=== PATIENT | female | born 1950 | race Caucasian/White ===

== ENCOUNTER 2018-09-19 22:59 | Inpatient (IN) | payer MEDICARE ==
--- NOTE | 2018-09-20 00:03 | ED ---
Chest Pain HPI - General Chief Complaint: Chest Pain Stated Complaint: chest pain,SOB Time Seen by Provider: 09/19/18 23:03 Source: patient, EMS Mode of arrival: EMS Limitations: no limitations - History of Present Illness Initial Comments: is a 67-year-old female presenting for shortness of breath. She has a known history of COPD and heart failure. She states that for the last 2 days, she has been having shortness of breath and is worse with laying flat. She is also been coughing denies any fevers. She has been having intermittent chest pain as well as a physical pressure on top of her chest. She was seen at outside facility, [facility], where they evaluated her and sent her here for further evaluation. She states that she was given a breathing treatment and it was noted to improve. - Related Data Home Medications Medication Instructions Recorded Confirmed Albuterol Nebulized [Ventolin 2.5 mg INHALATION RT-BID 09/19/18 09/19/18 Nebulized] Allopurinol [Zyloprim] 200 mg PO DAILY 09/19/18 09/19/18 Clopidogrel Bisulfate [Plavix] 75 mg PO DAILY 09/19/18 09/19/18 Diltiazem Cd [Cardizem Cd] 180 mg PO DAILY 09/19/18 09/19/18 Ezetimibe [Zetia] 10 mg PO DAILY 09/19/18 09/19/18 Flecainide Acetate [Tambocor] 100 mg PO Q12H 09/19/18 09/19/18 Fluticasone Nasal [place] [Flonase 1 - 2 spray EA NOSTRIL BID PRN 09/19/18 Nasal [place]] Furosemide [Lasix] 20 mg PO DAILY 09/19/18 09/19/18 Loratadine [Claritin] 10 mg PO DAILY 09/19/18 09/19/18 Omeprazole [PriLOSEC] 20 mg PO AC-BRKFST 09/19/18 09/19/18 Rosuvastatin Calcium [Crestor] 40 mg PO HS 09/19/18 09/19/18 Allergies Allergy/AdvReac Type Severity Reaction Status Date / Time No Known Allergies Allergy Verified 09/19/18 23:34 Review of Systems ROS Statement: Those systems with pertinent positive or pertinent negative responses have been documented in the HPI. Constitutional: Negative for chills, fatigue and fever. HENT: Negative for congestion. Respiratory: Positive for chest tightness, shortness of breath and wheezing. Positive for cough Cardiovascular: Negative for chest pain and palpitations. Gastrointestinal: Negative for abdominal pain. Negative for abdominal distention , diarrhea, nausea and vomiting. Genitourinary: Negative for dysuria. Musculoskeletal: Negative for back pain, neck pain and neck stiffness. Skin: Negative for color change. Neurological: Negative for dizziness, speech difficulty, weakness and light- headedness. Psychiatric/Behavioral: Negative for agitation and confusion. Negative for anxiety ROS Other: All systems not noted in ROS Statement are negative. Past Medical History Past Medical History: Heart Failure, COPD Additional Past Medical History / Comment(s): breast ca History of Any Multi-Drug Resistant Organisms: None Reported Additional Past Surgical History / Comment(s): choley, c section, right mastectomy Past Psychological History: No Psychological Hx Reported Smoking Status: Current every day smoker Past Alcohol Use History: None Reported Past Drug Use History: None Reported General Exam - General Exam Comments Initial Comments: Constitutional: Pt appears well-developed and well-nourished. No distress. Head: Normocephalic and atraumatic. Eyes: EOM are normal. Neck: Normal range of motion. Neck supple. Cardiovascular: Bradycardia, irregular rhythm, S1 normal, S2 normal and normal heart sounds. Exam reveals no gallop and no friction rub. No murmur heard. Trace pitting edema of the lower extremities Pulmonary/Chest: Effort normal and breath sounds normal. No tachypnea and no bradypnea. No respiratory distress. Mild wheezing bilaterally of the lower lung bases. Abdominal: Soft. Bowel sounds are normal. Pt exhibits no shifting dullness, there is mild diffuse abdominal distention, no pulsatile liver, no fluid wave, no abdominal bruit and no ascites. There is no rigidity, no rebound, no guarding , no tenderness at McBurney's point and negative Echavarria's sign. There is no tenderness. Musculoskeletal: Normal range of motion. Neurological: Pt is alert and oriented to person, place, and time. No cranial nerve deficit. Skin: Skin is warm and dry. Eczema-type rash of the neck noted. Pt is not diaphoretic. No erythema. No pallor. Psychiatric: Pt has a normal mood and affect. Pt behavior is normal. Thought content normal. Limitations: no limitations Course Vital Signs 09/19/18 09/19/18 23:03 23:30 Temperature 97.9 F Pulse Rate 50 L 40 L Respiratory 15 15 Rate Blood Pressure 97/76 110/56 O2 Sat by Pulse 94 L 96 Oximetry Chest Pain MDM - MDM Laboratory studies at the outside facility showed that sodium was 146, potassium 4.7, chloride 107, bicarb 28, glucose 186, calcium 9.1, BUN 21, creatinine 1.6, AST 18, ALT 19, GFR 32. Troponin was also noted to be negative. Significant findings included a BNP elevated at 1926. WBC was measured at 10.7, RBC 3.83, hemoglobin 12.4, hematocrit 38.3, MCV 100, MCH 32.4 , platelets 269. Chest x-ray was performed at outside facility as well and showed mild central pulmonary vascular congestion without consolidation. On arrival to our facility, EKG was performed and showed bradycardia with some mild ST depressions in V2 V3. Patient was not heparinized initially as troponin was negative at outside facility and she was not having any active chest pain. Patient was also asymptomatic in terms of the bradycardia and heart rate would occasionally get into the low 50s and therefore emergent treatment was not pursued. Nonetheless, it is likely thought that the patient' s shortness of breath and dyspnea secondary to COPD and/or CHF. Patient was not given aspirin or Lasix here as she had already received that at the outside facility. Explained all labs and diagnostic test results and that we will admit patient to hospital. Pt is agreeable to plan and case will be discussed with [facility] hospitalist in the a.m. Disposition Clinical Impression: Elevated brain natriuretic peptide (BNP) level, Bradycardia, COPD exacerbation Disposition: ADMITTED IP TO THIS HOSP Condition: Good Referrals: Nonstaff,Physician [Primary Care Provider] - 1-2 days Decision to Admit Reason: Admit from EC Decision Time: 00:18
[2018-09-20] MEDS ORDERED: NITROGLYCERIN SL TABS 0.4 MG TAB SUBLINGUAL PRN (00:35)
[2018-09-20 06:31] LABS: Creatine Kinase 64 U/L (30-135)
[2018-09-20 06:44] LABS: Creatine Kinase MB <0.2 ng/mL (0.0-2.4); Troponin I <0.012 ng/mL (0.000-0.034)
--- NOTE | 2018-09-20 09:44 | P.HPIM ---
History of Present Illness This is a pleasant 67 years old female with past medical history of COPD, congestive heart failure, breast cancer. Patient presents because of dyspnea and cough. Patient says that she has symptoms of 2-3 days of worsening dyspnea with her chronic cough making little phlegm now. Patient also was complaining of from palpitation of 1-2 days, which make her more concerns and she decided to come to the emergency room. Patient she feels generally weak however today she feels a little better and she couldn't walk to the restroom twice with no difficulty. Patient is on home oxygen 2 L via nasal cannula. Patient states that her PCP had left some dusky and she doesn't have one now. She sees Dr. Rosado the manager financial systems EKG showing bradycardia at 42 with the rhythm showing atrial fibrillation. Records patient have bigeminy secondary to morbid stype 2 on EMS EKG. Chest x- ray showing mild pulmonary vascular congestion with no acute consolidation as per report of the radiologist. Labs reviewed showing creatinine 1.6. Liver enzymes elevated. Troponin is less than 0.017. WBC 10.7 K. Hemoglobin 12.4. Platelets 269. BNP 1926. Sodium 146. Potassium 4.7. Review of Systems CONSTITUTIONAL: No fever, no malaise, no fatigue. HEENT: No recent visual problems or hearing problems. Denied any sore throat. CARDIOVASCULAR: No orthopnea, PND, no palpitations, no syncope. PULMONARY: No shortness of breath, no cough, no hemoptysis. GASTROINTESTINAL: No diarrhea, no nausea, no vomiting, no abdominal pain. Normoactive bowel sounds. NEUROLOGICAL: No headaches, no weakness, no numbness. HEMATOLOGICAL: Denies any bleeding or petechiae. GENITOURINARY: Denies any burning micturition, frequency, or urgency. MUSCULOSKELETAL/RHEUMATOLOGICAL: Denies any joint pain, swelling, or any muscle pain. ENDOCRINE: Denies any polyuria or polydipsia. Past Medical History Past Medical History: Heart Failure, COPD Additional Past Medical History / Comment(s): breast ca History of Any Multi-Drug Resistant Organisms: None Reported Past Surgical History: Section, Cholecystectomy Additional Past Surgical History / Comment(s): choley, c section, right mastectomy Past Anesthesia/Blood Transfusion Reactions: No Reported Reaction Past Psychological History: No Psychological Hx Reported Smoking Status: Current every day smoker Past Alcohol Use History: None Reported Past Drug Use History: None Reported Medications and Allergies Home Medications Medication Instructions Recorded Confirmed Type Albuterol Nebulized [Ventolin 2.5 mg INHALATION RT-BID 09/19/18 09/19/18 History Nebulized] Allopurinol [Zyloprim] 200 mg PO DAILY 09/19/18 09/19/18 History Clopidogrel Bisulfate [Plavix] 75 mg PO DAILY 09/19/18 09/19/18 History Diltiazem Cd [Cardizem Cd] 180 mg PO DAILY 09/19/18 09/19/18 History Ezetimibe [Zetia] 10 mg PO DAILY 09/19/18 09/19/18 History Flecainide Acetate [Tambocor] 100 mg PO Q12H 09/19/18 09/19/18 History Fluticasone Nasal [place] [Flonase 1 - 2 spray EA NOSTRIL BID PRN 09/19/18 History Nasal [place]] Furosemide [Lasix] 20 mg PO DAILY 09/19/18 09/19/18 History Loratadine [Claritin] 10 mg PO DAILY 09/19/18 09/19/18 History Omeprazole [PriLOSEC] 20 mg PO AC-BRKFST 09/19/18 09/19/18 History Rosuvastatin Calcium [Crestor] 40 mg PO HS 09/19/18 09/19/18 History Allergies Allergy/AdvReac Type Severity Reaction Status Date / Time No Known Allergies Allergy Verified 09/19/18 23:34 Physical Exam Vitals: Vital Signs Temp Pulse Pulse Resp BP BP Pulse Ox 09/20/18 04:00 97.9 F 46 L 18 104/60 94 L 09/20/18 03:26 44 L 20 09/20/18 02:07 97.8 F 44 L 20 102/65 97 09/20/18 01:00 39 L 15 121/63 96 09/20/18 00:00 40 L 15 134/76 99 09/19/18 23:30 40 L 15 110/56 96 09/19/18 23:03 97.9 F 50 L 15 97/76 94 L Intake and Output 09/19/18 09/20/18 09/20/18 22:59 06:59 14:59 Intake Total 137 Balance 137 Intake: Oral 137 Other: Voiding Method Toilet # Voids 1 Weight 64 kg GENERAL: The patient is alert and oriented x3, not in any acute distress. Well developed, well nourished. HEENT: Pupils are round and equally reacting to light. EOMI. No scleral icterus. No conjunctival pallor. Normocephalic, atraumatic. No pharyngeal erythema. No thyromegaly. CARDIOVASCULAR: S1 and S2 present. No murmurs, rubs, or gallops. PULMONARY: Chest is clear to auscultation, no wheezing or crackles. ABDOMEN: Soft, nontender, nondistended, normoactive bowel sounds. No palpable organomegaly. MUSCULOSKELETAL: No joint swelling or deformity. EXTREMITIES: No cyanosis, clubbing, or pedal edema. NEUROLOGICAL: Gross neurological examination did not reveal any focal deficits. SKIN: No rashes. Thrombosis Risk Factor Assmnt - Choose All That Apply Any of the Below Risk Factors Present?: Yes Each Factor Represents 1 point: Abnormal pulmonary function (COPD), Obesity ( BMI >25) Other Risk Factors: Yes Each Risk Factor Represents 2 Points: Age 61-74 years Other congenital or acquired thrombophilia - If yes, enter type in comment: No Thrombosis Risk Factor Assessment Total Risk Factor Score: 4 Thrombosis Risk Factor Assessment Level: Moderate Risk Assessment and Plan Assessment: Atrial fibrillation with bradycardia Chest pain. Looks more pleuritic Acute COPD exacerbation History of congestive heart failure. History of breast cancer. Generalized weakness Plan: This is a pleasant 67 years old female who presents because of dyspnea and bradycardia with abnormal EKG. Will call cardiology and pulmonary consult. Continue with a breathing treatments and oxygen. Steroids. Continue with antibiotic. Labs and medication were reviewed.. Continue same treatment. Continue with symptomatic treatment. Resume home medication. Monitor lytes and vitals. DVT and GI prophylaxis. Further recommendations of the clinical course of the patient DVT prophylaxis: Subcutaneous heparin GI Prophylaxis: Pepcid PT/OT: Pending Prognosis is guarded
--- NOTE | 2018-09-20 10:47 | P.CRDCN ---
History of Present Illness Consult date: 09/20/18 Requesting physician: Zoraida Bloom Consult reason: chest pain, congestive heart failure Chief complaint: Chest discomfort and shortness of breath History of present illness: This is a 67-year-old female with history of hypertension, hyperlipidemia, nondiabetic, she states that she smokes 3 packs of cigarettes per day, history of COPD, family history of premature coronary artery disease in her brother who recently had a stent placed. Patient presented to [facility] with symptoms of chest pressure and heaviness, also patient has been experiencing shortness of breath more than her usual, over the past couple of weeks. She has been coughing a significant amount, nonproductive. Patient also states that she has been getting episodes where he feels like she is going to pass out but denies any syncopal episodes. Chest x- ray performed at [place] showed mild central pulmonary vascular congestion. No acute consolidation. EKG performed at [facility] shows atrial fibrillation with a slow ventricular response. White blood cell count 10.7, hemoglobin 12.4, platelet count 269. BNP 1926. Sodium 146, potassium 4.7, BUN 21 and creatinine 1.6. Troponin 0.017. Patient was transferred to [facility] for further care and treatment. Patient states that she follows with a clerical assistant named Dr. Gipson. I pressure on arrival here 97/70 with a heart rate in the 40s to 50s, 94% on room air. Blood pressure this morning 90/ 50 with a heart rate in the 50s, 95% on room air. Troponins 0.012, 0.012. Past Medical History Past Medical History: Heart Failure, COPD Additional Past Medical History / Comment(s): breast ca History of Any Multi-Drug Resistant Organisms: None Reported Past Surgical History: Section, Cholecystectomy Additional Past Surgical History / Comment(s): choley, c section, right mastectomy Past Anesthesia/Blood Transfusion Reactions: No Reported Reaction Past Psychological History: No Psychological Hx Reported Smoking Status: Current every day smoker Past Alcohol Use History: None Reported Past Drug Use History: None Reported Medications and Allergies Home Medications Medication Instructions Recorded Confirmed Type Albuterol Nebulized [Ventolin 2.5 mg INHALATION RT-BID 09/19/18 09/19/18 History Nebulized] Allopurinol [Zyloprim] 200 mg PO DAILY 09/19/18 09/19/18 History Clopidogrel Bisulfate [Plavix] 75 mg PO DAILY 09/19/18 09/19/18 History Diltiazem Cd [Cardizem Cd] 180 mg PO DAILY 09/19/18 09/19/18 History Ezetimibe [Zetia] 10 mg PO DAILY 09/19/18 09/19/18 History Flecainide Acetate [Tambocor] 100 mg PO Q12H 09/19/18 09/19/18 History Fluticasone Nasal [place] [Flonase 1 - 2 spray EA NOSTRIL BID PRN 09/19/18 History Nasal [place]] Furosemide [Lasix] 20 mg PO DAILY 09/19/18 09/19/18 History Loratadine [Claritin] 10 mg PO DAILY 09/19/18 09/19/18 History Omeprazole [PriLOSEC] 20 mg PO AC-BRKFST 09/19/18 09/19/18 History Rosuvastatin Calcium [Crestor] 40 mg PO HS 09/19/18 09/19/18 History Allergies Allergy/AdvReac Type Severity Reaction Status Date / Time No Known Allergies Allergy Verified 09/19/18 23:34 Physical Exam Vitals: Vital Signs Temp Pulse Pulse Resp BP BP Pulse Ox 09/20/18 08:00 97.3 F L 51 L 20 91/50 95 09/20/18 04:00 97.9 F 46 L 18 104/60 94 L 09/20/18 03:26 44 L 20 09/20/18 02:07 97.8 F 44 L 20 102/65 97 09/20/18 01:00 39 L 15 121/63 96 09/20/18 00:00 40 L 15 134/76 99 09/19/18 23:30 40 L 15 110/56 96 09/19/18 23:03 97.9 F 50 L 15 97/76 94 L Intake and Output 09/19/18 09/20/18 09/20/18 22:59 06:59 14:59 Intake Total 137 0 Balance 137 0 Intake: Oral 137 0 Other: Voiding Method Toilet # Voids 1 Weight 64 kg PHYSICAL EXAMINATION: GENERAL: 67-year-old female in no acute distress at the time of my examination HEENT: Head is atraumatic, normocephalic. Pupils equal, round. Sclera anicteric. Conjunctiva are clear. Mucous membranes of the mouth are moist. Neck is supple. There is no elevated jugular venous pressure. No carotid bruit is heard. HEART EXAMINATION: Heart S1 and S2 irregularly irregular systolic murmur is heard. CHEST EXAMINATION: lungs reveal scattered wheezing throughout with diminished air entry to the bases. ABDOMEN: Soft, nontender. Bowel sounds are heard. No organomegaly noted. EXTREMITIES: 1+ peripheral pulses with evidence of peripheral edema and no calf tenderness noted. NEUROLOGIC patient is awake, alert and oriented 3 . . Results Cardiac Enzymes 09/19/18 09/20/18 Range/Units 23:30 05:32 CK-MB (CK-2) <0.2 (0.0-2.4) ng/mL Troponin I <0.012 <0.012 (0.000-0.034) ng/mL Current Medications Generic Name Dose Route Start Last Admin Trade Name Freq PRN Reason Stop Dose Admin Aspirin 325 mg 09/21/18 09:00 Aspirin PO DAILY [facility] Doxycycline Monohydrate 100 mg 09/20/18 09:45 Vibramycin PO 09/25/18 09:46 BID [facility] Famotidine 20 mg 09/20/18 21:00 Pepcid IV Q12HR PUMA Heparin Sodium (Porcine) 5,000 unit 09/20/18 21:00 Heparin SQ Q12HR [facility] Methylprednisolone Sodium Succinate 40 mg 09/20/18 09:45 Solu-Medrol IV Q12HR [facility] Nitroglycerin 0.4 mg 09/20/18 00:35 Nitrostat SUBLINGUAL Q5M PRN Chest Pain Intake and Output 09/19/18 09/20/18 09/20/18 22:59 06:59 14:59 Intake Total 137 0 Balance 137 0 Intake: Oral 137 0 Other: Voiding Method Toilet # Voids 1 Weight 64 kg EKG Interpretations (text) EKG shows atrial fibrillation with a slow ventricular response. Assessment and Plan Plan: Assessment and plan #1 symptoms of progressively worsening shortness of breath, likely combination of COPD exacerbation and congestive cardiac failure. LV function unknown #2 chest pain, pleuritic in nature. Troponin at [place] 0.017, subsequent troponins here are negative 2. #3 hypertension #4 hyperlipidemia #5 COPD #6 nicotine dependence, patient's smokes up to 3 packs of cigarettes per day #7 family history of premature coronary artery disease #8 atrial fibrillation with slow ventricular response, questionable of [place] type II block #9 episodes of dizziness and near syncope, could be related to hypotension or rated cardiac or combination of both. Plan We will obtain an echocardiogram with Doppler study. Patient denies having prior history of atrial fibrillation however she was on flecainide as an outpatient. No anticoagulation. Patient was also taking Cardizem CD 180 mg at home. Patient is currently on IV steroids, we will also give the patient some IV diuretics. Hold the flecainide and Cardizem at this time and continue to monitor heart rate. Monitor orthostatic heart rate and blood pressure every shift. We will also attempt to get records from Dr. Quinones for the patient' s clerical assistant. Check TSH level. Further recommendations to follow. DNP note has been reviewed, I agree with a documented findings and plan of care. Patient was seen and examined.
[2018-09-20] MEDS: DOXYCYCLINE 100 MG CAP PO SCH ×2 (10:54→21:44)
[2018-09-20] MEDS: methylPREDNISolone SOD SUCCI 40 MG/ML 1 ML VIAL IV SCH ×2 (10:54→21:45)
[2018-09-20 11:50] LABS: Creatine Kinase 66 U/L (30-135)
[2018-09-20] MEDS: FUROSEMIDE 10 MG/ML 4 ML VIAL IV SCH ×2 (11:55→21:45)
[2018-09-20 12:03] LABS: Creatine Kinase MB 0.2 ng/mL (0.0-2.4); Troponin I <0.012 ng/mL (0.000-0.034)
--- NOTE | 2018-09-20 12:19 | ECHOF ---
Referral Reason:chf MEASUREMENTS -------- HEIGHT: 132.1 cm WEIGHT: 64.0 kg BP: RVIDd: 2.5 cm (< 3.3) IVSd: 1.0 cm (0.6 - 1.1) LVIDd: 4.4 cm (3.9 - 5.3) LVPWd: 1.2 cm (0.6 - 1.1) IVSs: 1.6 cm LVIDs: 3.6 cm LVPWs: 1.4 cm LA Diam: 3.1 cm (2.7 - 3.8) Ao Diam: 2.7 cm (2.0 - 3.7) LA Diam: 3.6 cm (2.7 - 3.8) MV E Luis Felipe: 0.45 m/s MV DecT: 251 ms MV A Luis Felipe: 0.73 m/s MV E/A Ratio: 0.62 RAP: 5.00 mmHg RVSP: 15.39 mmHg FINDINGS -------- Sinus rhythm. This was a techncally difficult study with suboptimal views, , Definity utilized for enhancement of i mages. LV size, wall thickness and systolic function are normal, with an EF greater than 55%. The left liseth tricular size is normal. The right ventricle is normal in size. The left atrial size is normal. The right atrial size is normal. Lumason used The aortic valve was not well visualized. Mild mitral annular calcification present. Mild mitral regurgitation is present. Mild tricuspid regurgitation present. There is no evidence of pulmonary hypertension. The right v entricular systolic pressure, as measured by Doppler, is 15.39mmHg. The pulmonic valve was not well visualized. The aortic root size is normal. There is no pericardial effusion. CONCLUSIONS -------- 1. This was a techncally difficult study with suboptimal views, , Definity utilized for enhancement o f images. 2. LV size, wall thickness and systolic function are normal, with an EF greater than 55%. 3. The left ventricular size is normal. 4. The right ventricle is normal in size. 5. The left atrial size is normal. 6. The right atrial size is normal. 7. Lumason used 8. The aortic valve was not well visualized. 9. Mild mitral annular calcification present. 10. Mild mitral regurgitation is present. 11. Mild tricuspid regurgitation present. 12. There is no evidence of pulmonary hypertension. 13. The right ventricular systolic pressure, as measured by Doppler, is 15.39mmHg. 14. The pulmonic valve was not well visualized. 15. The aortic root size is normal. 16. There is no pericardial effusion. GEOSCIENCE PROFESSOR: Ramona Finley RDCS
[2018-09-20] MEDS ORDERED: IPRATROPIUM-ALBUTEROL 3 ML NEB INHALATION PRN (13:30)
--- NOTE | 2018-09-20 13:43 | P.CNPUL ---
History of Present Illness Consult date: 09/20/18 Requesting physician: Ayo Jackson Chief complaint: Dyspnea, chest pain History of present illness: This is 67-year-old white female patient of Dr. Ana Copoer, with past medical history of hypertension, COPD, home oxygen, chronic and ongoing nicotine dependence, history of right mastectomy, who presented to this hospital as a transfer from [facility] per ambulance on 09/19/2018, with complaints of shortness of breath, chest pain, orthopnea, leg weakness. Patient denied any fever or chills, denied any chest congestion, denied any coughing. She was experiencing some palpitations, and was having some substernal and back pain. She had mild swelling in her bilateral feet. No nausea, no vomiting, no diaphoresis. Her chest pain was intermittent, and described as a physical pressure. EKG done at the [facility] and in the ambulance was questionable for second or third degree AV block. EKG completed at the [facility] showed A. fib with a rate of 42, with T-wave inversion in V2-V6. Chest x-ray was completed at the [facility] and showed some mild central pulmonary vascular congestion. Blood work completed at the [facility] showed white blood cell count of 10.7, hemoglobin of 12.4, hematocrit of 38.3, white count of 269, proBNP was elevated at 1926, serum sodium was 146, potassium is 4.7, chloride is 107, CO2 is 28, serum glucose was 186, calcium was 9.1, BUN was 21, creatinine was 1.6, ALT was 19, is T was 19, alkaline phosphatase was 66, troponin was 0.017. 3 more sets of troponins and cardiac enzymes were done at this hospital, and all 3 were as 0.012. Patient is seen on selective care unit, he is calm and comfortable, in no acute distress, currently on 2 L per nasal cannula her pulse ox is 96%, she is afebrile, vital signs are stable. She has been evaluated by cardiology, patient is on flecainide and oral Cardizem, but no anticoagulation. Ventolin inhaler is listed on her home meds, patient has never been seen by a lung specialist. Patient was significantly wheezy and short of breath, she was started on doxycycline, IV Solu-Medrol, and IV Lasix. Review of Systems All systems: negative Constitutional: Denies chills, Denies fever Eyes: denies blurred vision, denies pain Ears, nose, mouth and throat: Denies headache, Denies sore throat Cardiovascular: Reports dyspnea on exertion, Reports edema, Reports orthopnea, Reports palpitations, Denies chest pain, Denies shortness of breath Respiratory: Reports dyspnea, Reports home oxygen, Reports wheezing, Denies cough Gastrointestinal: Denies abdominal pain, Denies diarrhea, Denies nausea, Denies vomiting Genitourinary: Denies dysuria, Denies hematuria Musculoskeletal: Denies myalgias Integumentary: Denies pruritus, Denies rash Neurological: Denies numbness, Denies weakness Psychiatric: Denies anxiety, Denies depression Endocrine: Denies fatigue, Denies weight change Past Medical History Past Medical History: Heart Failure, COPD Additional Past Medical History / Comment(s): breast ca History of Any Multi-Drug Resistant Organisms: None Reported Past Surgical History: Section, Cholecystectomy Additional Past Surgical History / Comment(s): choley, c section, right mastectomy Past Anesthesia/Blood Transfusion Reactions: No Reported Reaction Past Psychological History: No Psychological Hx Reported Smoking Status: Current every day smoker Past Alcohol Use History: None Reported Past Drug Use History: None Reported Medications and Allergies Home Medications Medication Instructions Recorded Confirmed Type Albuterol Nebulized [Ventolin 2.5 mg INHALATION RT-BID 09/19/18 09/19/18 History Nebulized] Allopurinol [Zyloprim] 200 mg PO DAILY 09/19/18 09/19/18 History Clopidogrel Bisulfate [Plavix] 75 mg PO DAILY 09/19/18 09/19/18 History Diltiazem Cd [Cardizem Cd] 180 mg PO DAILY 09/19/18 09/19/18 History Ezetimibe [Zetia] 10 mg PO DAILY 09/19/18 09/19/18 History Flecainide Acetate [Tambocor] 100 mg PO Q12H 09/19/18 09/19/18 History Fluticasone Nasal [place] [Flonase 1 - 2 spray EA NOSTRIL BID PRN 09/19/18 History Nasal [place]] Furosemide [Lasix] 20 mg PO DAILY 09/19/18 09/19/18 History Loratadine [Claritin] 10 mg PO DAILY 09/19/18 09/19/18 History Omeprazole [PriLOSEC] 20 mg PO AC-BRKFST 09/19/18 09/19/18 History Rosuvastatin Calcium [Crestor] 40 mg PO HS 09/19/18 09/19/18 History Allergies Allergy/AdvReac Type Severity Reaction Status Date / Time No Known Allergies Allergy Verified 09/19/18 23:34 Physical Exam Vitals: Vital Signs Temp Pulse Pulse Pulse Pulse Pulse Resp 09/20/18 12:00 97 F L 58 L 65 73 18 09/20/18 08:00 97.3 F L 51 L 20 09/20/18 04:00 97.9 F 46 L 18 09/20/18 03:26 44 L 20 09/20/18 02:07 97.8 F 44 L 20 09/20/18 01:00 39 L 15 09/20/18 00:00 40 L 15 09/19/18 23:30 40 L 15 09/19/18 23:03 97.9 F 50 L 15 BP BP BP BP BP Pulse Ox 09/20/18 12:00 93/56 118/62 95/54 96 09/20/18 08:00 91/50 95 09/20/18 04:00 104/60 94 L 09/20/18 03:26 09/20/18 02:07 102/65 97 09/20/18 01:00 121/63 96 09/20/18 00:00 134/76 99 09/19/18 23:30 110/56 96 09/19/18 23:03 97/76 94 L Intake and Output 09/19/18 09/20/18 09/20/18 22:59 06:59 14:59 Intake Total 137 222 Balance 137 222 Intake: Oral 137 222 Other: Voiding Method Toilet # Voids 1 # Bowel Movements 0 Weight 64 kg GENERAL EXAM: Alert, pleasant, 67-year-old white female comfortable in no apparent distress. HEAD: Normocephalic/atraumatic. EYES: Normal reaction of pupils, equal size. Conjunctiva pink, sclera white. NOSE: Clear with pink turbinates. THROAT: No erythema or exudates. NECK: No masses, no JVD, no thyroid enlargement, no adenopathy. CHEST: No chest wall deformity. Symmetrical expansion. LUNGS: Equal air entry with expiratory wheezes, bibasilar crackles CVS: Regular rate and rhythm, normal S1 and S2, no gallops, no murmurs, no rubs ABDOMEN: Soft, nontender. No hepatosplenomegaly, normal bowel sounds, no guarding or rigidity. EXTREMITIES: No clubbing, no edema, no cyanosis, 2+ pulses and upper and lower extremities. MUSCULOSKELETAL: Muscle strength and tone normal. SPINE: No scoliosis or deformity SKIN: No rashes CENTRAL NERVOUS SYSTEM: Alert and oriented -3. No focal deficits, tone is normal in all 4 extremities. PSYCHIATRIC: Alert and oriented -3. Appropriate affect. Intact judgment and insight. Results - Diagnostic Findings Chest x-ray: report reviewed Additional studies: EKG reviewed, labs from [facility] reviewed Assessment and Plan Plan: Assessment: #1. Acute exacerbation of congestive heart failure, with a preserved left ventricular systolic function, with EF greater than 55% #2. Mild exacerbation of chronic obstructive pulmonary disease, chest x-ray completed at the [facility] showed mild central vascular pulmonary congestion but no acute consolidation #3. A. fib with slow ventricular rate #4. Chest pain, 4 sets of cardiac enzymes and troponins were negative #5. History of advanced COPD with chronic hypoxemic respiratory failure, she wears 2 L of oxygen at home #6. Acute kidney injury versus chronic kidney disease, BUN was 21, and creatinine was 1.6 at the [facility] #6. Chronic and ongoing nicotine dependence, patient smokes 2 packs a day for over 50 years #7. Hypertension, hyperlipidemia #8. Right breast mastectomy, presumably for history of breast cancer Plan: Continue the IV steroids, empiric antibiotics, we'll add DuoNeb nebulized treatments. Has been started on IV Lasix per cardiology. Currently in no distress, she is ambulating, denies any chest pain, denies any dyspnea. We'll repeat blood work in the morning, monitor electrolytes, renal profile. Patient' s renal profile was abnormal on initial blood work at the [facility], not clear that this is chronic or acute. We'll repeat chest x-ray in the morning. Continue to follow I performed a history & physical examination of the patient and discussed their management with my nurse practitioner, Cinda Mcneil. I reviewed the nurse practitioner's note and agree with the documented findings and plan of care. Lung sounds are positive for expiratory wheezes, bibasilar crackles. The findings and the impression was discussed with the patient. I attest to the documentation by the nurse practitioner. Time with Patient: Greater than 30
[2018-09-20 16:48] LABS: Glucose,Whole Blood 167 mg/dL (75-99)
[2018-09-20] MEDS: INSULIN ASPART (NovoLOG) 100 UNIT/ML VIAL SQ SCH ×2 (17:49→21:46)
[2018-09-20] MEDS: IPRATROPIUM-ALBUTEROL 3 ML NEB INHALATION SCH (20:30)
[2018-09-20] MEDS ORDERED: FAMOTIDINE 20 MG/2 ML VIAL IV SCH (21:00)
[2018-09-20 21:08] LABS: Glucose,Whole Blood 165 mg/dL (75-99)
[2018-09-20] MEDS: FAMOTIDINE 20 MG TAB PO SCH (21:44)
[2018-09-20] MEDS: ATORVASTATIN 80 MG TAB PO SCH (21:44)
[2018-09-20] MEDS: HEPARIN SODIUM,PORCINE 5,000 UNIT/ML 1 ML VIAL SQ SCH (21:45)
[2018-09-21 06:02] LABS: Glucose,Whole Blood 157 mg/dL (75-99)
[2018-09-21 06:44] LABS: HCT 41.7 % (34.0-46.0); HGB 13.6 gm/dL (11.4-16.0); MCH 31.7 pg (25.0-35.0); MCHC 32.6 g/dL (31.0-37.0); MCV 97.3 fL (80.0-100.0); Mean Platelet Volume 8.1; Platelet Count 340 k/uL (150-450); RBC 4.29 m/uL (3.80-5.40); RDW 14.1 % (11.5-15.5); WBC 18.7 k/uL (3.8-10.6)
[2018-09-21 07:05] LABS: Calcium 9.8 mg/dL (8.4-10.2); Potassium 4.5 mmol/L (3.5-5.1)
[2018-09-21] MEDS: IPRATROPIUM-ALBUTEROL 3 ML NEB INHALATION SCH ×3 (08:38→21:13)
[2018-09-21] MEDS ORDERED: ASPIRIN 325 MG TAB PO SCH (09:00)
[2018-09-21] MEDS: INSULIN ASPART (NovoLOG) 100 UNIT/ML VIAL SQ SCH ×4 (09:10→21:44)
[2018-09-21] MEDS: methylPREDNISolone SOD SUCCI 40 MG/ML 1 ML VIAL IV SCH (09:10)
[2018-09-21] MEDS: HEPARIN SODIUM,PORCINE 5,000 UNIT/ML 1 ML VIAL SQ SCH ×2 (09:10→21:44)
[2018-09-21] MEDS: FUROSEMIDE 10 MG/ML 4 ML VIAL IV SCH (09:10)
[2018-09-21] MEDS: ALLOPURINOL 100 MG TAB PO SCH (09:11)
[2018-09-21] MEDS: FAMOTIDINE 20 MG TAB PO SCH (09:12)
[2018-09-21] MEDS: LORATADINE 10 MG TAB PO SCH (09:12)
[2018-09-21] MEDS: EZETIMIBE 10 MG TAB PO SCH (09:12)
[2018-09-21] MEDS: CLOPIDOGREL 75 MG TAB PO SCH (09:12)
[2018-09-21] MEDS: DOXYCYCLINE 100 MG CAP PO SCH ×2 (09:12→21:44)
[2018-09-21] MEDS: ASPIRIN 81 MG PO SCH (09:12)
--- NOTE | 2018-09-21 09:31 | XR ---
EXAMINATION TYPE: XR chest 2V DATE OF EXAM: 09/21/2018 COMPARISON: Prior chest x-ray 09/19/2018 from outside institution HISTORY: Shortness of breath TECHNIQUE: Frontal and lateral views of the chest are obtained. FINDINGS: Bandlike areas of increased attenuation present at the lung bases. No pneumothorax or pleu ral effusion. Cardiac mediastinal silhouette, pulmonary vascularity and amy are within normal limits . Prominent lung volumes suggest underlying COPD. There is bronchial wall thickening. There are cardi ac leads, patient is rotated. Surgical clips present in the upper abdomen. IMPRESSION: Probable basilar atelectasis and/or scarring. Correlate for COPD, bronchitis. Follow-up suggested.
[2018-09-21 11:42] LABS: Glucose,Whole Blood 121 mg/dL (75-99)
--- NOTE | 2018-09-21 11:58 | P.PN ---
Subjective This is a pleasant 67 years old female with past medical history of COPD, congestive heart failure, breast cancer. Patient presents because of dyspnea and cough. Patient says that she has symptoms of 2-3 days of worsening dyspnea with her chronic cough making little phlegm now. Patient also was complaining of from palpitation of 1-2 days, which make her more concerns and she decided to come to the emergency room. Patient she feels generally weak however today she feels a little better and she couldn't walk to the restroom twice with no difficulty. Patient is on home oxygen 2 L via nasal cannula. Patient states that her PCP had left some dusky and she doesn't have one now. She sees Dr. Rosado the transfer table operator EKG showing bradycardia at 42 with the rhythm showing atrial fibrillation. Records patient have bigeminy secondary to morbid stype 2 on EMS EKG. Chest x- ray showing mild pulmonary vascular congestion with no acute consolidation as per report of the radiologist. Labs reviewed showing creatinine 1.6. Liver enzymes elevated. Troponin is less than 0.017. WBC 10.7 K. Hemoglobin 12.4. Platelets 269. BNP 1926. Sodium 146. Potassium 4.7. 09/21/2018 Patient's a little dyspneic today with no chest pain. She has scalp with yellow to green phlegm. On exam patient is still have wheezing and coarse crepitation. She is saturating 93% on 3 L oxygen via NC. Chest Vitas looks stable. Her WBC is 18.7. Creatinine 1.6. TSH normal limits at 0.6. Chest x- ray: Possible COPD with basilar atelectasis. Patient IV steroids and switched to oral. She remains on doxycycline and IV Lasix. Patient states that she has a PCP and upon discharge she wants to make her own appointments with him within one week as instructed, she has his contact information. Objective - Vital Signs Vital signs: Vital Signs Temp 97.7 F 09/21/18 08:00 Pulse 84 09/21/18 08:49 Resp 16 09/21/18 08:49 BP 106/64 09/21/18 08:00 Pulse Ox 93 L 09/21/18 08:38 Intake & Output 09/20/18 09/21/18 09/21/18 18:59 06:59 18:59 Intake Total 666 240 Output Total 1000 Balance 666 -1000 240 Weight 63.4 kg Intake: Oral 666 240 Output: Urine 1000 Other: Voiding Method Toilet # Voids 1 1 # Bowel Movements 0 - Exam GENERAL: The patient is alert and oriented x3, not in any acute distress. Well developed, well nourished. HEENT: Pupils are round and equally reacting to light. EOMI. No scleral icterus. No conjunctival pallor. Normocephalic, atraumatic. No pharyngeal erythema. No thyromegaly. CARDIOVASCULAR: S1 and S2 present. No murmurs, rubs, or gallops. PULMONARY: Chest is clear to auscultation, no wheezing or crackles. ABDOMEN: Soft, nontender, nondistended, normoactive bowel sounds. No palpable organomegaly. MUSCULOSKELETAL: No joint swelling or deformity. EXTREMITIES: No cyanosis, clubbing, or pedal edema. NEUROLOGICAL: Gross neurological examination did not reveal any focal deficits. SKIN: No rashes. - Labs CBC & Chem 7: 09/21/18 06:19 09/21/18 06:19 Labs: Abnormal Lab Results - Last 24 Hours (Table) 09/20/18 09/20/18 09/21/18 Range/Units 16:47 21:07 06:01 WBC (3.8-10.6) k/uL BUN (7-17) mg/dL Creatinine (0.52-1.04) mg/dL Glucose (74-99) mg/dL POC Glucose (mg/dL) 167 H 165 H 157 H (75-99) mg/dL Triglycerides (<150) mg/dL 09/21/18 09/21/18 09/21/18 Range/Units 06:19 06:19 11:40 WBC 18.7 H (3.8-10.6) k/uL BUN 40 H (7-17) mg/dL Creatinine 1.69 H (0.52-1.04) mg/dL Glucose 157 H (74-99) mg/dL POC Glucose (mg/dL) 121 H (75-99) mg/dL Triglycerides 160 H (<150) mg/dL Assessment and Plan Assessment: Acute on chronic diastolic congestive heart failure Atrial fibrillation with bradycardia Chest pain. Looks more pleuritic Acute COPD exacerbation History of congestive heart failure. History of breast cancer. Generalized weakness Plan: This is a pleasant 67 years old female who presents because of dyspnea and bradycardia with abnormal EKG. Will call cardiology and pulmonary consult. Continue with a breathing treatments and oxygen. Steroids. Continue with antibiotic. Labs and medication were reviewed.. Continue same treatment. Continue with symptomatic treatment. Resume home medication. Monitor lytes and vitals. DVT and GI prophylaxis. Further recommendations of the clinical course of the patient DVT prophylaxis: Subcutaneous heparin GI Prophylaxis: Pepcid PT/OT: Pending Prognosis is guarded
--- NOTE | 2018-09-21 15:18 | PN ---
PROGRESS NOTE Mrs. Massey is a 67-year-old female with known history of severe chronic obstructive lung disease, severe smoking, smokes at least 2 packs a day, who presented to the hospital with symptoms of progressive dyspnea and chest discomfort associated with cough. Cardiology consultation was requested because of minimal elevation of the troponin. She is doing well today. She is ambulating without difficulty. She denies any chest pain, no palpitation. She denies any nausea. She continues to be at this time on aspirin, Lipitor 80 mg daily, Plavix 75 mg daily, Zetia 10 mg daily, furosemide 40 mg IV q.12 hours, and prednisone. PHYSICAL EXAMINATION: Blood pressure 135/80 with a heart rate in the 80s. Lungs with decreased air exchange, no wheezes. HEART: Regular rate and rhythm, S1, S2. No S3. No rub. ABDOMEN: Soft, nontender. No organomegaly. EXTREMITIES: No edema. LAB DATA: Echocardiogram revealed normal left ventricular systolic function with no evidence of significant pulmonary hypertension. IMPRESSION: 1. Progressive dyspnea in a patient with known history of chronic tobacco use with upper respiratory infection. 2. Mild troponin elevation. No evidence of myocardial infarction. 3. Chronic tobacco use. 4. Episode of paroxysmal atrial fibrillation, remains in sinus mechanism. 5. Hypertension. RECOMMENDATION: From the cardiac standpoint, I will cut down the dose of her Lasix, switch her to oral diuretics. Will continue present therapy. Increase her activity. I expect if she is stable to be able to be discharged home in the next 24 hours. MMODL / IJN: [id number] /
[2018-09-21 15:27] LABS: Hemoglobin A1C 6.4 % (4.0-6.0)
[2018-09-21] MEDS: FUROSEMIDE 20 MG TAB PO SCH (15:40)
--- NOTE | 2018-09-21 16:11 | P.PN ---
Subjective Progress Note Date: 09/21/18 Principal diagnosis: Acute exacerbation of congestive heart failure with diastolic dysfunction, mild exacerbation of COPD This is 67-year-old white female patient of Dr. Ana Cooper, with past medical history of hypertension, COPD, home oxygen, chronic and ongoing nicotine dependence, history of right mastectomy, who presented to this hospital as a transfer from [facility] per ambulance on 09/19/2018, with complaints of shortness of breath, chest pain, orthopnea, leg weakness. Patient denied any fever or chills, denied any chest congestion, denied any coughing. She was experiencing some palpitations, and was having some substernal and back pain. She had mild swelling in her bilateral feet. No nausea, no vomiting, no diaphoresis. Her chest pain was intermittent, and described as a physical pressure. EKG done at the [facility] and in the ambulance was questionable for second or third degree AV block. EKG completed at the [facility] showed A. fib with a rate of 42, with T-wave inversion in V2-V6. Chest x-ray was completed at the [facility] and showed some mild central pulmonary vascular congestion. Blood work completed at the [facility] showed white blood cell count of 10.7, hemoglobin of 12.4, hematocrit of 38.3, white count of 269, proBNP was elevated at 1926, serum sodium was 146, potassium is 4.7, chloride is 107, CO2 is 28, serum glucose was 186, calcium was 9.1, BUN was 21, creatinine was 1.6, ALT was 19, is T was 19, alkaline phosphatase was 66, troponin was 0.017. 3 more sets of troponins and cardiac enzymes were done at this hospital, and all 3 were as 0.012. Patient is seen on selective care unit, he is calm and comfortable, in no acute distress, currently on 2 L per nasal cannula her pulse ox is 96%, she is afebrile, vital signs are stable. She has been evaluated by cardiology, patient is on flecainide and oral Cardizem, but no anticoagulation. Ventolin inhaler is listed on her home meds, patient has never been seen by a lung specialist. Patient was significantly wheezy and short of breath, she was started on doxycycline, IV Solu-Medrol, and IV Lasix. On 09/21/2018 patient seen in follow-up on selective care unit, she is resting comfortably in bed, in no acute distress, room air pulse ox was 89%, on 3 L her pulse ox was 93%, she is afebrile, denies any chest pain, her lung sounds are less congested and wheezy on today's exam, hemodynamically patient is stable. Today's labs have been reviewed, and showed white blood cell count of 18.7, hemoglobin of 13.6, electrolytes are within normal limits, B1 is 40 and creatinine was 1.69. Stage was within normal limits. Today's chest x-ray has been reviewed and showed basilar atelectasis and scarring. She remains on empiric antibiotics in the form of doxycycline, she has been transitioned to oral prednisone, and her IV diuretics have been transitioned to oral. Objective - Vital Signs Vital signs: Vital Signs Temp 97.7 F 09/21/18 08:00 Pulse 80 09/21/18 13:36 Resp 16 09/21/18 13:36 BP 135/80 09/21/18 12:00 Pulse Ox 89 L 09/21/18 12:00 Intake & Output 09/20/18 09/21/18 09/21/18 18:59 06:59 18:59 Intake Total 666 462 Output Total 1000 700 Balance 666 -1000 -238 Weight 63.4 kg Intake: Oral 666 462 Output: Urine 1000 700 Other: Voiding Method Toilet # Voids 1 1 1 # Bowel Movements 0 - Exam GENERAL EXAM: Alert, pleasant, 67-year-old white female comfortable in no apparent distress. HEAD: Normocephalic/atraumatic. EYES: Normal reaction of pupils, equal size. Conjunctiva pink, sclera white. NOSE: Clear with pink turbinates. THROAT: No erythema or exudates. NECK: No masses, no JVD, no thyroid enlargement, no adenopathy. CHEST: No chest wall deformity. Symmetrical expansion. LUNGS: Equal air entry with limited wheezes, and crackles CVS: Regular rate and rhythm, normal S1 and S2, no gallops, no murmurs, no rubs ABDOMEN: Soft, nontender. No hepatosplenomegaly, normal bowel sounds, no guarding or rigidity. EXTREMITIES: No clubbing, no edema, no cyanosis, 2+ pulses and upper and lower extremities. MUSCULOSKELETAL: Muscle strength and tone normal. SPINE: No scoliosis or deformity SKIN: No rashes CENTRAL NERVOUS SYSTEM: Alert and oriented -3. No focal deficits, tone is normal in all 4 extremities. PSYCHIATRIC: Alert and oriented -3. Appropriate affect. Intact judgment and insight. - Labs CBC & Chem 7: 09/21/18 06:19 09/21/18 06:19 Labs: Abnormal Lab Results - Last 24 Hours (Table) 09/20/18 09/20/18 09/21/18 Range/Units 16:47 21:07 06:01 WBC (3.8-10.6) k/uL BUN (7-17) mg/dL Creatinine (0.52-1.04) mg/dL Glucose (74-99) mg/dL POC Glucose (mg/dL) 167 H 165 H 157 H (75-99) mg/dL Hemoglobin A1c (4.0-6.0) % Triglycerides (<150) mg/dL 09/21/18 09/21/18 09/21/18 Range/Units 06:19 06:19 06:19 WBC 18.7 H (3.8-10.6) k/uL BUN 40 H (7-17) mg/dL Creatinine 1.69 H (0.52-1.04) mg/dL Glucose 157 H (74-99) mg/dL POC Glucose (mg/dL) (75-99) mg/dL Hemoglobin A1c 6.4 H (4.0-6.0) % Triglycerides 160 H (<150) mg/dL 09/21/18 Range/Units 11:40 WBC (3.8-10.6) k/uL BUN (7-17) mg/dL Creatinine (0.52-1.04) mg/dL Glucose (74-99) mg/dL POC Glucose (mg/dL) 121 H (75-99) mg/dL Hemoglobin A1c (4.0-6.0) % Triglycerides (<150) mg/dL Assessment and Plan Plan: Assessment: #1. Acute exacerbation of congestive heart failure, with a preserved left ventricular systolic function, with EF greater than 55% #2. Mild exacerbation of chronic obstructive pulmonary disease, chest x-ray completed at the [facility] showed mild central vascular pulmonary congestion but no acute consolidation #3. A. fib with slow ventricular rate #4. Chest pain, 4 sets of cardiac enzymes and troponins were negative #5. History of advanced COPD with chronic hypoxemic respiratory failure, she wears 2 L of oxygen at home #6. Acute kidney injury versus chronic kidney disease, BUN was 21, and creatinine was 1.6 at the [facility] #6. Chronic and ongoing nicotine dependence, patient smokes 2 packs a day for over 50 years #7. Hypertension, hyperlipidemia #8. Right breast mastectomy, presumably for history of breast cancer Plan: Patient is doing well, less short of breath, less bronchospastic on today's exam , she has been ambulating, tolerating activity well. Denies any complaints of chest pain. Continue oral antibiotics, will transition to oral prednisone. Continue nebulized bronchodilators. She has been diuresed, today's chest x-ray has been reviewed, and showed some atelectasis and scarring, no pulmonary rest or congestion, no oral effusions, no pulmonary infiltrates. From pulmonary perspective patient can probably due to discharge home in the next 24 hours provided she continues to improve and has been cleared by cardiology I performed a history & physical examination of the patient and discussed their management with my nurse practitioner, Cinda Mcneil. I reviewed the nurse practitioner's note and agree with the documented findings and plan of care. Lung sounds are positive for expiratory wheezes, bibasilar crackles. The findings and the impression was discussed with the patient. I attest to the documentation by the nurse practitioner. Time with Patient: Less than 30
[2018-09-21 17:01] LABS: Glucose,Whole Blood 189 mg/dL (75-99)
[2018-09-21 20:28] LABS: Glucose,Whole Blood 129 mg/dL (75-99)
[2018-09-21] MEDS: ATORVASTATIN 80 MG TAB PO SCH (21:44)
[2018-09-22 00:57] VITALS: RESP 20
[2018-09-22 06:45] LABS: Basophils % (A) 0 %; Eosinophils # (A) 0.1 k/uL (0-0.7); Eosinophils % (A) 1 %; HCT 42.4 % (34.0-46.0); HGB 13.7 gm/dL (11.4-16.0); Lymphocytes # (A) 2.2 k/uL (1.0-4.8); Lymphocytes % (A) 13 %; MCH 31.4 pg (25.0-35.0); MCHC 32.4 g/dL (31.0-37.0); MCV 97.2 fL (80.0-100.0); Mean Platelet Volume 7.2; Monocytes % (A) 5 %; Neutrophils # (A) 14.2 k/uL (1.3-7.7); Neutrophils % (A) 81 %; Platelet Count 340 k/uL (150-450); RBC 4.37 m/uL (3.80-5.40); RDW 14.3 % (11.5-15.5); WBC 17.6 k/uL (3.8-10.6)
[2018-09-22 06:53] LABS: Calcium 9.7 mg/dL (8.4-10.2); Potassium 4.4 mmol/L (3.5-5.1)
[2018-09-22 07:11] LABS: Glucose,Whole Blood 95 mg/dL (75-99)
[2018-09-22 07:44] VITALS: BP 103/64; TEMP 98.4
[2018-09-22] MEDS: INSULIN ASPART (NovoLOG) 100 UNIT/ML VIAL SQ SCH ×2 (07:57→12:30)
[2018-09-22] MEDS: HEPARIN SODIUM,PORCINE 5,000 UNIT/ML 1 ML VIAL SQ SCH (08:00)
[2018-09-22] MEDS: IPRATROPIUM-ALBUTEROL 3 ML NEB INHALATION SCH ×2 (08:36→13:14)
[2018-09-22 08:47] VITALS: PULSE 80
[2018-09-22] MEDS ORDERED: predniSONE 20 MG TAB PO SCH (09:00)
[2018-09-22] MEDS ORDERED: FAMOTIDINE 20 MG TAB PO SCH (09:00)
[2018-09-22] MEDS: CLOPIDOGREL 75 MG TAB PO SCH (10:01)
[2018-09-22] MEDS: EZETIMIBE 10 MG TAB PO SCH (10:01)
[2018-09-22] MEDS: DOXYCYCLINE 100 MG CAP PO SCH (10:01)
[2018-09-22] MEDS: ALLOPURINOL 100 MG TAB PO SCH (10:01)
[2018-09-22] MEDS: FUROSEMIDE 20 MG TAB PO SCH (10:02)
[2018-09-22] MEDS: ASPIRIN 81 MG PO SCH (10:02)
[2018-09-22] MEDS: LORATADINE 10 MG TAB PO SCH (10:02)
--- NOTE | 2018-09-22 11:14 | P.PN ---
Subjective Progress Note Date: 09/22/18 Principal diagnosis: Acute exacerbation of congestive heart failure with diastolic dysfunction, mild exacerbation of COPD This is 67-year-old white female patient of Dr. Ana Cooper, with past medical history of hypertension, COPD, home oxygen, chronic and ongoing nicotine dependence, history of right mastectomy, who presented to this hospital as a transfer from [facility] per ambulance on 09/19/2018, with complaints of shortness of breath, chest pain, orthopnea, leg weakness. Patient denied any fever or chills, denied any chest congestion, denied any coughing. She was experiencing some palpitations, and was having some substernal and back pain. She had mild swelling in her bilateral feet. No nausea, no vomiting, no diaphoresis. Her chest pain was intermittent, and described as a physical pressure. EKG done at the [facility] and in the ambulance was questionable for second or third degree AV block. EKG completed at the [facility] showed A. fib with a rate of 42, with T-wave inversion in V2-V6. Chest x-ray was completed at the [facility] and showed some mild central pulmonary vascular congestion. Blood work completed at the [facility] showed white blood cell count of 10.7, hemoglobin of 12.4, hematocrit of 38.3, white count of 269, proBNP was elevated at 1926, serum sodium was 146, potassium is 4.7, chloride is 107, CO2 is 28, serum glucose was 186, calcium was 9.1, BUN was 21, creatinine was 1.6, ALT was 19, is T was 19, alkaline phosphatase was 66, troponin was 0.017. 3 more sets of troponins and cardiac enzymes were done at this hospital, and all 3 were as 0.012. Patient is seen on selective care unit, he is calm and comfortable, in no acute distress, currently on 2 L per nasal cannula her pulse ox is 96%, she is afebrile, vital signs are stable. She has been evaluated by cardiology, patient is on flecainide and oral Cardizem, but no anticoagulation. Ventolin inhaler is listed on her home meds, patient has never been seen by a lung specialist. Patient was significantly wheezy and short of breath, she was started on doxycycline, IV Solu-Medrol, and IV Lasix. On 09/21/2018 patient seen in follow-up on selective care unit, she is resting comfortably in bed, in no acute distress, room air pulse ox was 89%, on 3 L her pulse ox was 93%, she is afebrile, denies any chest pain, her lung sounds are less congested and wheezy on today's exam, hemodynamically patient is stable. Today's labs have been reviewed, and showed white blood cell count of 18.7, hemoglobin of 13.6, electrolytes are within normal limits, B1 is 40 and creatinine was 1.69. Stage was within normal limits. Today's chest x-ray has been reviewed and showed basilar atelectasis and scarring. She remains on empiric antibiotics in the form of doxycycline, she has been transitioned to oral prednisone, and her IV diuretics have been transitioned to oral. On 09/22/2018 since seen again in follow-up on selective care unit. She is doing well, no shortness of breath, she is up ambulating, denies any distress, lung sounds are clear, diminished at the bases, no rhonchi or wheezes on today' s exam, patient is afebrile, no chest pain. No fever or chills. Today's blood work has been noted, white blood cell count is slightly downtrending, 17.6, B1 is 53, and creatinine is 1.69, stable renal profile, electrolytes were within normal limits. From pulmonary perspective patient is stable for discharge home today, if she has been cleared by cardiology Objective - Vital Signs Vital signs: Vital Signs Temp 98.4 F 09/22/18 07:40 Pulse 80 09/22/18 08:47 Resp 20 09/22/18 07:40 BP 103/64 09/22/18 07:40 Pulse Ox 94 L 09/22/18 08:36 Intake & Output 09/21/18 09/22/18 09/22/18 18:59 06:59 18:59 Intake Total 462 480 Output Total 900 Balance -438 480 Weight 64 kg Intake: Oral 462 480 Output: Urine 900 Other: Voiding Method Toilet Toilet # Voids 1 2 - Exam GENERAL EXAM: Alert, pleasant, 67-year-old white female comfortable in no apparent distress. HEAD: Normocephalic/atraumatic. EYES: Normal reaction of pupils, equal size. Conjunctiva pink, sclera white. NOSE: Clear with pink turbinates. THROAT: No erythema or exudates. NECK: No masses, no JVD, no thyroid enlargement, no adenopathy. CHEST: No chest wall deformity. Symmetrical expansion. LUNGS: Equal air entry with clear breath sounds diminished at the bases CVS: Regular rate and rhythm, normal S1 and S2, no gallops, no murmurs, no rubs ABDOMEN: Soft, nontender. No hepatosplenomegaly, normal bowel sounds, no guarding or rigidity. EXTREMITIES: No clubbing, no edema, no cyanosis, 2+ pulses and upper and lower extremities. MUSCULOSKELETAL: Muscle strength and tone normal. SPINE: No scoliosis or deformity SKIN: No rashes CENTRAL NERVOUS SYSTEM: Alert and oriented -3. No focal deficits, tone is normal in all 4 extremities. PSYCHIATRIC: Alert and oriented -3. Appropriate affect. Intact judgment and insight. - Labs CBC & Chem 7: 09/22/18 06:12 09/22/18 06:12 Labs: Abnormal Lab Results - Last 24 Hours (Table) 09/21/18 09/21/18 09/21/18 Range/Units 06:19 11:40 17:00 WBC (3.8-10.6) k/uL Neutrophils # (1.3-7.7) k/uL BUN (7-17) mg/dL Creatinine (0.52-1.04) mg/dL Glucose (74-99) mg/dL POC Glucose (mg/dL) 121 H 189 H (75-99) mg/dL Hemoglobin A1c 6.4 H (4.0-6.0) % 09/21/18 09/22/18 09/22/18 Range/Units 20:15 06:12 06:12 WBC 17.6 H (3.8-10.6) k/uL Neutrophils # 14.2 H (1.3-7.7) k/uL BUN 53 H (7-17) mg/dL Creatinine 1.69 H (0.52-1.04) mg/dL Glucose 106 H (74-99) mg/dL POC Glucose (mg/dL) 129 H (75-99) mg/dL Hemoglobin A1c (4.0-6.0) % Assessment and Plan Plan: Assessment: #1. Acute exacerbation of congestive heart failure, with a preserved left ventricular systolic function, with EF greater than 55% #2. Mild exacerbation of chronic obstructive pulmonary disease, chest x-ray completed at the [facility] showed mild central vascular pulmonary congestion but no acute consolidation #3. A. fib with slow ventricular rate #4. Chest pain, 4 sets of cardiac enzymes and troponins were negative #5. History of advanced COPD with chronic hypoxemic respiratory failure, she wears 2 L of oxygen at home #6. Acute kidney injury versus chronic kidney disease, BUN was 21, and creatinine was 1.6 at the [facility] #6. Chronic and ongoing nicotine dependence, patient smokes 2 packs a day for over 50 years #7. Hypertension, hyperlipidemia #8. Right breast mastectomy, presumably for history of breast cancer Plan: Patient is doing well, vital signs are stable, no fever or chills, breathing continues to improve, lung sounds are essentially clear on today's exam. Stable for discharge home from pulmonary perspective, on prednisone taper, oral course of antibiotics, she has nebulized albuterol at home, she has albuterol rescue inhaler, patient needs to see Dr. Fabian in the office, at the [facility], per patient's preference as the patient lives in [place]. I performed a history & physical examination of the patient and discussed their management with my nurse practitioner, Cinda Mcneil. I reviewed the nurse practitioner's note and agree with the documented findings and plan of care. Lung sounds are positive for clear breath sounds, diminished at the bases. The findings and the impression was discussed with the patient. I attest to the documentation by the nurse practitioner. Time with Patient: Less than 30
[2018-09-22 11:43] LABS: Glucose,Whole Blood 155 mg/dL (75-99)
--- NOTE | 2018-09-22 23:58 | P.DS ---
Providers Date of admission: 09/20/18 00:38 Attending physician: Zoraida Bloom Consults: 09/20/18 00:35 Consult Physician Urgent Consulting Provider: Rick Gonzalez Consult Reason/Comments: Elevated BNP Do you want consulting provider notified?: Yes, Notify in am 09/20/18 09:40 Consult Physician Urgent Consulting Provider: Aaron Alvarez Reason/Comments: dyspnea Do you want consulting provider notified?: Yes Primary care physician: Physician Nonstaff Hospital Course: Diagnoses: Acute on chronic diastolic congestive heart failure Atrial fibrillation with bradycardia Chest pain. Looks more pleuritic Acute COPD exacerbation History of congestive heart failure. History of breast cancer. Generalized weakness hosptial course This is a pleasant 67 years old female with past medical history of COPD, congestive heart failure, breast cancer. Patient presents because of dyspnea and cough. Patient says that she has symptoms of 2-3 days of worsening dyspnea with her chronic cough making little phlegm now. pt was found to have acute congestive heart faliure , she is been evaluated by furniture repairer, she was treated with diuretic , breathing treatment and oxygen. pt was thought to have mild acute copd exacerbation as well and pulmonary cleared her for discharge after treatment. pt showed interval improvment and she returned to her baseline. with no dyspnea , no chest pain , no coughing ,pt could walk in the [address] iwth no difficultly, creatinine was 1.6, stable. pt states she has h/o kidney disease and she has seen diversity manager before , she states her pcp/[facility]ER was retired in her pcp office, i called the office of her pcp Dr.James downs who was not available, appointment was made with BOX GLUER, Amos López, also i discussed the case with Amos López and he kindly took note to follow up with her elevated wbc , which mostly due to steroid, and her elevated creating , her baseline creatinine last time was 1.4 as pr BOX GLUER Amos. pt agrees with appointment made for her with her pcp and furniture repairer and states she will f/u Pt was instructed about the problems and management plan and Pt verbalized understanding and acceptance Pt is found stable and can be discharged to the community but needs follow up as outpt. Discharge exam Gen.: Patient alert awake and oriented X 3, NOT IN DISTRESS CVS: s1-s2, RRR, no murmur CHEST:bilateral CTA, no wheezing or crepitation Abdomen: Soft, no tenderness, no distention, positive bowel sounds Extremities: No leg edema or induration time spent : more than 35 min Patient Condition at Discharge: Good Plan - Discharge Summary New Discharge Prescriptions: New Aspirin 81 mg PO DAILY #30 chew Nitroglycerin Sl Tabs [Nitrostat] 0.4 mg SUBLINGUAL Q5M PRN #20 tab PRN Reason: Chest Pain predniSONE 10 mg PO DIRECTED #15 tab Continue Fluticasone Nasal Lawn [Flonase Nasal Lawn] 1 - 2 spray EA NOSTRIL BID PRN PRN Reason: Allergy Symptoms Omeprazole [PriLOSEC] 20 mg PO AC-BRKFST Loratadine [Claritin] 10 mg PO DAILY Furosemide [Lasix] 20 mg PO DAILY Ezetimibe [Zetia] 10 mg PO DAILY Clopidogrel Bisulfate [Plavix] 75 mg PO DAILY Albuterol Nebulized [Ventolin Nebulized] 2.5 mg INHALATION RT-BID Rosuvastatin Calcium [Crestor] 40 mg PO HS Allopurinol [Zyloprim] 200 mg PO DAILY Discontinued Flecainide Acetate [Tambocor] 100 mg PO Q12H Diltiazem Cd [Cardizem Cd] 180 mg PO DAILY Discharge Medication List Albuterol Nebulized [Ventolin Nebulized] 2.5 mg INHALATION RT-BID 09/19/18 [ History] Allopurinol [Zyloprim] 200 mg PO DAILY 09/19/18 [History] Clopidogrel Bisulfate [Plavix] 75 mg PO DAILY 09/19/18 [History] Ezetimibe [Zetia] 10 mg PO DAILY 09/19/18 [History] Fluticasone Nasal Lawn [Flonase Nasal Lawn] 1 - 2 spray EA NOSTRIL BID PRN 05/28 [History] Furosemide [Lasix] 20 mg PO DAILY 09/19/18 [History] Loratadine [Claritin] 10 mg PO DAILY 09/19/18 [History] Omeprazole [PriLOSEC] 20 mg PO AC-BRKFST 09/19/18 [History] Rosuvastatin Calcium [Crestor] 40 mg PO HS 09/19/18 [History] Aspirin 81 mg PO DAILY #30 chew 09/22/18 [Rx] Nitroglycerin Sl Tabs [Nitrostat] 0.4 mg SUBLINGUAL Q5M PRN #20 tab 09/22/18 [Rx ] predniSONE 10 mg PO DIRECTED #15 tab 09/22/18 [Rx] Follow up Appointment(s)/Referral(s): Brandon Diaz MD [STAFF PHYSICIAN] - 09/29/18 9:15 am Sofía Mcgee MD [STAFF PHYSICIAN] - 1 Week (new patient follow up on labs, patient should call to make appointment if recommended by primary care at follow up appointment) Henrry Garland MD [REFERRING] - 09/27/18 2:00 pm (your primary care physician, you will see Amos López (BOX GLUER) we recomend to check your blood tests with your doctor including white cell count (WBC) and creatinine level.) Rick Gonzalez MD [STAFF PHYSICIAN] - 10/01/18 1:00 pm ([facility] Main entrance.) [facility] Visiting Nurse, [NON-STAFF] - As Needed Patient Instructions/Handouts: COPD (Chronic Obstructive Pulmonary Disease) (DC ) Activity/Diet/Wound Care/Special Instructions: cardiac diet activity is limited till you see your doctor we recommend to keep using oxygen 2 L/m via nasal cannula Discharge Disposition: HOME WITH HOME HEALTH SERVICES
== END 2018-09-22 14:51 | disposition home health service (06) | DRG 291 ==
LOC: EC 22:59 → 3SCARD 09-20 00:38 → 4SSUR 09-21 18:09
PROVIDERS: ADMIT Internal Medicine; ATTEND Internal Medicine
DX: I13.0 Hypertensive heart and chronic kidney disease with heart failure and stage 1 through stage 4 chronic kidney disease, or unspecified chronic kidney disease (principal); I50.33 Acute on chronic diastolic (congestive) heart failure; J44.1 Chronic obstructive pulmonary disease with (acute) exacerbation; J96.11 Chronic respiratory failure with hypoxia; J98.11 Atelectasis; N17.9 Acute kidney failure, unspecified; N18.9 Chronic kidney disease, unspecified; F17.210 Nicotine dependence, cigarettes, uncomplicated; E78.5 Hyperlipidemia, unspecified; I48.0 Paroxysmal atrial fibrillation; T38.0X5A Adverse effect of glucocorticoids and synthetic analogues, initial encounter; D72.829 Elevated white blood cell count, unspecified; Z79.02 Long term (current) use of antithrombotics/antiplatelets; Z79.899 Other long term (current) drug therapy; Z82.49 Family history of ischemic heart disease and other diseases of the circulatory system; Z82.5 Family history of asthma and other chronic lower respiratory diseases; Z85.3 Personal history of malignant neoplasm of breast; Z90.11 Acquired absence of right breast and nipple; Z99.81 Dependence on supplemental oxygen; Z90.49 Acquired absence of other specified parts of digestive tract; R07.9 Chest pain, unspecified; I44.1 Atrioventricular block, second degree
CPT/HCPCS: 36415; 71046; 80048; 80061; 82550; 82553; 83036; 84443; 84484; 85025; 85027; 93005; 93306; 94640; 94760; 99285

== ENCOUNTER 2021-02-24 22:54 | Observation (INO) | payer MEDICARE ==
[2021-02-25] MEDS ORDERED: IPRATROPIUM-ALBUTEROL 3 ML NEB INHALATION PRN (02:33)
[2021-02-25] MEDS ORDERED: diphenhydrAMINE 25 MG CAP PO PRN (06:29)
[2021-02-25 06:40] LABS: Glucose,Whole Blood 146 mg/dL (75-99)
[2021-02-25] MEDS: INSULIN ASPART (NovoLOG) 100 UNIT/ML VIAL SQ SCH ×4 (06:43→20:33)
[2021-02-25] MEDS: methylPREDNISolone SOD SUCCI 40 MG/ML 1 ML VIAL IV SCH ×3 (08:00→23:40)
[2021-02-25 08:12] LABS: Basophils % (A) 0 %; Eosinophils % (A) 0 %; HCT 43.1 % (34.0-46.0); HGB 14.7 gm/dL (11.4-16.0); Lymphocytes # (A) 0.5 k/uL (1.0-4.8); Lymphocytes % (A) 9 %; MCH 32.2 pg (25.0-35.0); MCHC 34.1 g/dL (31.0-37.0); MCV 94.6 fL (80.0-100.0); Mean Platelet Volume 7.9; Monocytes # (A) 0.1 k/uL (0-1.0); Monocytes % (A) 2 %; Neutrophils # (A) 4.8 k/uL (1.3-7.7); Neutrophils % (A) 89 %; Platelet Count 266 k/uL (150-450); RBC 4.55 m/uL (3.80-5.40); RDW 12.9 % (11.5-15.5); WBC 5.3 k/uL (3.8-10.6)
[2021-02-25 08:18] LABS: Albumin 4.3 g/dL (3.5-5.0); Calcium 9.9 mg/dL (8.4-10.2); Potassium 4.7 mmol/L (3.5-5.1); Total Bilirubin 0.8 mg/dL (0.2-1.3); Total Protein 6.7 g/dL (6.3-8.2)
[2021-02-25] MEDS: CLOBETASOL PROP 0.05% CR 15GM TOPICAL SCH ×2 (09:00→20:33)
[2021-02-25] MEDS: SYMBICORT 160-4.5 MCG INHALER INHALATION SCH ×2 (09:20→20:08)
[2021-02-25] MEDS: hydrOXYzine pamoate 25 MG CAP PO SCH ×3 (09:38→21:25)
[2021-02-25] MEDS: ASPIRIN 81 MG PO SCH (09:38)
[2021-02-25] MEDS: CLOPIDOGREL 75 MG TAB PO SCH (09:38)
[2021-02-25] MEDS: HEPARIN SODIUM,PORCINE/PF 5,000 UNIT/0.5 ML SYRINGE SQ SCH ×2 (09:38→20:33)
[2021-02-25] MEDS: allopurinoL 100 MG TAB PO SCH (09:39)
[2021-02-25] MEDS: FAMOTIDINE 20 MG TAB PO SCH ×2 (09:39→20:33)
[2021-02-25] MEDS: FUROSEMIDE 20 MG TAB PO SCH (09:39)
--- NOTE | 2021-02-25 11:05 | P.CNPUL ---
History of Present Illness Consult date: 02/25/21 Requesting physician: Ayo E Renetta Reason for consult: dyspnea, cough, COPD, hypoxemia, pneumonia Chief complaint: Shortness of breath. History of present illness: Pulmonary consult dated 02/25/2021. This is a 70-year-old female with history of COPD, and hyperlipidemia, who presents to the emergency room and [place], with increasing shortness of breath. The patient is a very poor historian. She continues to smoke. She apparently has seen a lung doctor in the past. I believe she sees a nurse practitioner up in that area by the name of Aaron Leo. The patient admits to cough, chest congestion, shortness of breath, wheezing, and chest tightness. Again, she is not a particularly good historian. The only medications she was on as an outpatient was Crestor, Claritin, aspirin, clobetasol foam, Symbicort, and Kenalog cream. White count 5.3, hemoglobin 14.7, hematocrit 43.1, and platelet count 266,000. Sodium, potassium, chloride, CO2, anion gap, BUN, and creatinine are all normal. There is no chest x-ray from this institution. One will be ordered. Currently, the patient's on Symbicort, updrafts with albuterol sulfate and ipratropium bromide, and Solu-Medrol. Review of Systems REVIEW OF SYSTEMS: CONSTITUTIONAL: [Negative.] NEUROLOGIC: [ Negative.] HEENT: [ Negative.] CARDIAC: [Negative.] PULMONARY: Shortness of breath, cough, chest congestion. GI: [Negative.] : [Negative.] RHEUMATOLOGIC: [ Negative.] IMMUNOLOGIC: [ Negative.] ENDOCRINE: [Negative. ] DERMATOLOGIC: [Negative.] Past Medical History Past Medical History: Heart Failure, COPD, Renal Disease, Skin Disorder Additional Past Medical History / Comment(s): breast ca, psoriasis History of Any Multi-Drug Resistant Organisms: None Reported Past Surgical History: Section, Cholecystectomy Additional Past Surgical History / Comment(s): choley, c section, right mastectomy Past Anesthesia/Blood Transfusion Reactions: No Reported Reaction Past Psychological History: Depression Additional Psychological History / Comment(s): pt states she is on antidepressant medications. Smoking Status: Current every day smoker, Heavy tobacco smoker Past Alcohol Use History: None Reported Past Drug Use History: None Reported Medications and Allergies Home Medications Medication Instructions Recorded Confirmed Type Loratadine [Claritin] 10 mg PO DAILY 09/19/18 02/25/21 History Rosuvastatin Calcium [Crestor] 40 mg PO HS 09/19/18 02/25/21 History Aspirin 81 mg PO DAILY #30 chew 09/22/18 02/25/21 Rx Budesonide-Formot 160-4.5 Mcg 2 puff INHALATION RT-BID 02/25/21 02/25/21 History [Symbicort 160-4.5 Mcg Inhaler] Clobetasol Propionate/Emoll 1 applic TOPICAL BID 02/25/21 02/25/21 History [Clobetasol Emulsion 0.05% Foam] Triamcinolone 0.1% Cream [Kenalog 1 applicatio TOPICAL BID PRN 02/25/21 02/25/21 History 0.1% Cream] Allergies Allergy/AdvReac Type Severity Reaction Status Date / Time No Known Allergies Allergy Verified 02/25/21 08:01 Physical Exam Osteopathic Statement: *. No significant issues noted on an osteopathic structural exam other than those noted in the History and Physical/Consult. Vitals: Vital Signs Temp Pulse Resp BP Pulse Ox 02/25/21 03:30 98.9 F 94 18 107/55 98 02/25/21 01:10 98.1 F 90 18 119/75 95 Intake and Output 02/24/21 02/25/21 02/25/21 22:59 06:59 14:59 Intake Total 240 Balance 240 Intake: Oral 240 Other: Voiding Method Toilet Diaper # Voids 1 Weight 62.5 kg No acute distress, oriented, but a very poor historian, with mild conversational dyspnea, but without audible wheezing or use of accessory muscles. HEENT examination is grossly unremarkable. Neck supple. Full range of motion. No adenopathy thyromegaly or neck vein distention. Cardiovascular examination reveals regular rhythm rate. S1-S2 normal. No S3 or S4. No discernible murmur noted. Heart sounds are distant. Heart rate 94 bpm. Lungs reveal bilateral coarse rhonchi and wheezes. Breath sounds equal bilaterally. Slight prolongation on forced maneuver. There are no crackles. Breath sounds are diminished throughout. Abdomen soft bowel sounds are heard. No masses or tenderness. Extremities are intact. No cyanosis clubbing or edema. Skin is without rash or lesion. Neurologic examination is brief but nonfocal. Results - Laboratory Findings CBC and BMP: 02/25/21 07:43 02/25/21 07:43 Abnormal lab findings: Abnormal Labs 02/25/21 02/25/21 02/25/21 06:16 07:43 07:43 Lymphocytes # 0.5 L Glucose 147 H POC Glucose (mg/dL) 146 H - Diagnostic Findings Chest x-ray: image reviewed Assessment and Plan Assessment: Acute exacerbation of COPD and possibly triggered by purulent tracheobronchitis. History of ongoing tobacco use and nicotine addiction. History of hyperlipidemia. Very poor historian. Plan: Plan dated 02/25/2021. We will go ahead and order a chest x-ray and pro-calcitonin level. Currently, she is on Symbicort updrafts and Solu-Medrol. Additional recommendations and suggestions are forthcoming. Prognosis is guarded. The patient is counseled about the importance of smoking cessation. We will continue to follow and make recommendations where appropriate. Time with Patient: Greater than 30
[2021-02-25 11:43] LABS: Glucose,Whole Blood 194 mg/dL (75-99)
--- NOTE | 2021-02-25 12:25 | P.HPIM ---
History of Present Illness This is a pleasant 76 years old female with past medical history of heart failure, COPD, history of breast cancer and psoriasis, hyperlipidemia, gout, anxiety, atrial fibrillation. Patient presents to [facility] complaining of from dyspnea on and off but worse over the last 1-2 days associated with cough and light green phlegm and no chest pain. No GI or urinary complaints. No fever She was transferred from [facility] after this diagnosed with COPD exacerbation for pulmonary service evaluation. She smokes about 1.5 pack per day, or illicit drugs Vitals are stable and she is saturating 95% and a 3 L oxygen. Labs including CBC, BMP, liver enzymes are unremarkable. On reviewing the records from [facility] Looks like she was saturating mid-to high 90s on 6 L oxygen via nasal cannula Chest x-ray: Mild peripheral opacities in the bilateral bases are seen. This could represent scarring or atelectasis. per Radiologist WC 4.8, hemoglobin 13.5, platelet 223 k. BMP and liver enzymes are un remarkable. Troponin is negative less than 0.01. Coated test is negative EKG report showing sinus rhythm there are no ST elevation per ED notes from [place]. ProBNP is normal Medication: She was given Levaquin, times one, so Medrol 125 mg 1 and albuterol. Review of Systems CONSTITUTIONAL: No fever, no malaise, no fatigue. HEENT: No recent visual problems or hearing problems. Denied any sore throat. CARDIOVASCULAR: No orthopnea, PND, no palpitations, no syncope. PULMONARY: No chest wall tenderness, no hemoptysis. GASTROINTESTINAL: No diarrhea, no nausea, no vomiting, no abdominal pain. Normoactive bowel sounds. NEUROLOGICAL: No headaches, no weakness, no numbness. HEMATOLOGICAL: Denies any bleeding or petechiae. GENITOURINARY: Denies any burning micturition, frequency, or urgency. MUSCULOSKELETAL/RHEUMATOLOGICAL: Denies any joint pain, swelling, or any muscle pain. ENDOCRINE: Denies any polyuria or polydipsia. Past Medical History Past Medical History: Heart Failure, COPD, Renal Disease, Skin Disorder Additional Past Medical History / Comment(s): breast ca, psoriasis History of Any Multi-Drug Resistant Organisms: None Reported Past Surgical History: Section, Cholecystectomy Additional Past Surgical History / Comment(s): choley, c section, right mastectomy Past Anesthesia/Blood Transfusion Reactions: No Reported Reaction Past Psychological History: Depression Additional Psychological History / Comment(s): pt states she is on antidepressant medications. Smoking Status: Current every day smoker, Heavy tobacco smoker Past Alcohol Use History: None Reported Past Drug Use History: None Reported Medications and Allergies Home Medications Medication Instructions Recorded Confirmed Type Loratadine [Claritin] 10 mg PO DAILY 09/19/18 02/25/21 History Rosuvastatin Calcium [Crestor] 40 mg PO HS 09/19/18 02/25/21 History Aspirin 81 mg PO DAILY #30 chew 09/22/18 02/25/21 Rx Budesonide-Formot 160-4.5 Mcg 2 puff INHALATION RT-BID 02/25/21 02/25/21 History [Symbicort 160-4.5 Mcg Inhaler] Clobetasol Propionate/Emoll 1 applic TOPICAL BID 02/25/21 02/25/21 History [Clobetasol Emulsion 0.05% Foam] Triamcinolone 0.1% Cream [Kenalog 1 applicatio TOPICAL BID PRN 02/25/21 02/25/21 History 0.1% Cream] Allergies Allergy/AdvReac Type Severity Reaction Status Date / Time No Known Allergies Allergy Verified 02/25/21 08:01 Physical Exam Vitals: Vital Signs Temp Pulse Resp BP Pulse Ox 02/25/21 08:00 97.6 F 95 18 112/56 95 02/25/21 03:30 98.9 F 94 18 107/55 98 02/25/21 01:10 98.1 F 90 18 119/75 95 Intake and Output 02/24/21 02/25/21 02/25/21 22:59 06:59 14:59 Intake Total 240 Balance 240 Intake: Oral 240 Other: Voiding Method Toilet Toilet Diaper Diaper # Voids 1 Weight 62.5 kg GENERAL: The patient is alert and oriented x3, not in any acute distress. Well developed, well nourished. HEENT: Pupils are round and equally reacting to light. EOMI. No scleral icterus. No conjunctival pallor. Normocephalic, atraumatic. No pharyngeal erythema. No thyromegaly. CARDIOVASCULAR: S1 and S2 present. No murmurs, rubs, or gallops. -PULMONARY: Chest is clear to auscultation, bilateral expiratory wheezing ABDOMEN: Soft, nontender, nondistended, normoactive bowel sounds. No palpable organomegaly. MUSCULOSKELETAL: No joint swelling or deformity. EXTREMITIES: No cyanosis, clubbing, or pedal edema. NEUROLOGICAL: Gross neurological examination did not reveal any focal deficits. SKIN: No rashes. No petechiae Results CBC & Chem 7: 02/25/21 07:43 02/25/21 07:43 Labs: Abnormal Lab Results - Last 24 Hours (Table) 02/25/21 02/25/21 02/25/21 Range/Units 06:16 07:43 07:43 Lymphocytes # 0.5 L (1.0-4.8) k/uL Glucose 147 H (74-99) mg/dL POC Glucose (mg/dL) 146 H (75-99) mg/dL 02/25/21 Range/Units 11:41 Lymphocytes # (1.0-4.8) k/uL Glucose (74-99) mg/dL POC Glucose (mg/dL) 194 H (75-99) mg/dL Thrombosis Risk Factor Assmnt - Choose All That Apply Any of the Below Risk Factors Present?: Yes Each Factor Represents 1 point: Abnormal pulmonary function (COPD) Each Risk Factor Represents 2 Points: Age 61-74 years Thrombosis Risk Factor Assessment Total Risk Factor Score: 3 Thrombosis Risk Factor Assessment Level: Moderate Risk Assessment and Plan Assessment: Acute COPD exacerbation Chronic heart failure Hypertension Hyperlipidemia History of gout Nicotine dependence History of atrial fibrillation History of breast cancer History of psoriasis Plan: This is a pleasant 70 years old female who presents with COPD exacerbation. With steroids, bronchodilators. Pulmonary consult Labs and medication were reviewed.. Continue same treatment. Continue with symptomatic treatment. Resume home medication. Monitor lytes and vitals. DVT and GI prophylaxis. Further recommendations depends on the clinical course of the patient DVT prophylaxis: Subcutaneous heparin GI Prophylaxis: Pepcid PT/OT: Pending Prognosis is guarded
[2021-02-25 17:16] LABS: Glucose,Whole Blood 136 mg/dL (75-99)
[2021-02-25 19:20] LABS: Hepatitis B Surface AB- Quant 456.2 mIU/mL; Hepatitis B Surface Antibody Reactive (Non-Reactive)
--- NOTE | 2021-02-25 19:29 | XR ---
EXAMINATION TYPE: XR chest 2V DATE OF EXAM: 02/25/2021 COMPARISON: 12/04/2020 HISTORY: Short of breath TECHNIQUE: FINDINGS: Heart and mediastinum are normal. There is slight blunting left and right costophrenic angl e. There are no hilar masses. There are chest leads. There is no heart failure. The bony thorax is in tact. IMPRESSION: There is some pleural diaphragmatic scarring at the lung bases not changed. No heart fail ure. Normal heart.
[2021-02-25 19:59] LABS: Glucose,Whole Blood 187 mg/dL (75-99)
[2021-02-25] MEDS: ATORVASTATIN 80 MG TAB PO SCH (20:32)
[2021-02-26] MEDS: INSULIN ASPART (NovoLOG) 100 UNIT/ML VIAL SQ SCH ×4 (06:37→22:04)
[2021-02-26 06:40] LABS: Glucose,Whole Blood 178 mg/dL (75-99)
[2021-02-26] MEDS: SYMBICORT 160-4.5 MCG INHALER INHALATION SCH ×2 (09:11→20:03)
[2021-02-26] MEDS: FAMOTIDINE 20 MG TAB PO SCH (09:12)
[2021-02-26] MEDS: ASPIRIN 81 MG PO SCH (09:12)
[2021-02-26] MEDS: hydrOXYzine pamoate 25 MG CAP PO SCH ×3 (09:12→22:05)
[2021-02-26] MEDS: CLOPIDOGREL 75 MG TAB PO SCH (09:12)
[2021-02-26] MEDS: methylPREDNISolone SOD SUCCI 40 MG/ML 1 ML VIAL IV SCH ×3 (09:13→23:14)
[2021-02-26] MEDS: FUROSEMIDE 20 MG TAB PO SCH (09:13)
[2021-02-26] MEDS: HEPARIN SODIUM,PORCINE/PF 5,000 UNIT/0.5 ML SYRINGE SQ SCH ×2 (09:13→22:04)
[2021-02-26] MEDS: allopurinoL 100 MG TAB PO SCH (09:13)
[2021-02-26] MEDS: CLOBETASOL PROP 0.05% CR 15GM TOPICAL SCH ×2 (09:14→22:05)
--- NOTE | 2021-02-26 10:17 | P.PN ---
Subjective Progress Note Date: 02/26/21 Principal diagnosis: Acute exacerbation of COPD, dyspnea, cough, hypoxia This is a 70-year-old female with history of COPD, and hyperlipidemia, who presents to the emergency room and [place], with increasing shortness of breath. The patient is a very poor historian. She continues to smoke. She apparently has seen a lung doctor in the past. I believe she sees a nurse nick mathews up in that area by the name of Aaron Leo. The patient admits to cough, chest congestion, shortness of breath, wheezing, and chest tightness. Again, she is not a particularly good historian. The only medications she was on as an outpatient was Crestor, Claritin, aspirin, clobetasol foam, Symbicort, and Kenalog cream. White count 5.3, hemoglobin 14.7, hematocrit 43.1, and platelet count 266,000. Sodium, potassium, chloride, CO2, anion gap, BUN, and creatinine are all normal. There is no chest x-ray from this institution. One will be ordered. Currently, the patient's on Symbicort, updrafts with albuterol sulfate and ipratropium bromide, and Solu-Medrol. On 02/26/2021 patient seen in follow-up on selective care unit, she is awake and alert, oriented 3, in no acute distress, breathing comfortably, she states she is proven clinically, less short of breath, less dyspneic, she was able to ambulate to the bathroom, she took a shower yesterday, tolerated activity well. Less bronchospastic on today's exam, she is on 3 L of oxygen pulse ox is 96%, she is afebrile, hemodynamically she stable. She remains on breathing treatments, IV steroids with Solu-Medrol 40 mg every 8 hours, Symbicort, and nebulized bronchodilators. Chest x-ray from yesterday showed pleural carlos phragmatic scarring at the lung bases stable in appearance. Objective - Vital Signs Vital signs: Vital Signs Temp 98.0 F 02/26/21 09:07 Pulse 72 02/26/21 09:07 Resp 20 02/26/21 09:07 BP 121/57 02/26/21 09:07 Pulse Ox 96 02/26/21 09:07 Intake & Output 02/25/21 02/26/2121 18:59 06:59 18:59 Intake Total 720 120 240 Output Total 300 Balance 720 120 -60 Weight 62.5 kg Intake: Oral 720 120 240 Output: Urine 300 Other: Voiding Method Toilet Toilet Diaper Diaper # Voids 1 0 - Exam GENERAL EXAM: Alert, very pleasant, 70-year-old white female, 3 L of oxygen and the pulse ox of 96% comfortable in no apparent distress. HEAD: Normocephalic/atraumatic. EYES: Normal reaction of pupils, equal size. Conjunctiva pink, sclera white. NOSE: Clear with pink turbinates. THROAT: No erythema or exudates. NECK: No masses, no JVD, no thyroid enlargement, no adenopathy. CHEST: No chest wall deformity. Symmetrical expansion. LUNGS: Equal air entry with diminished, with interval wheezes CVS: Regular rate and rhythm, normal S1 and S2, no gallops, no murmurs, no rubs ABDOMEN: Soft, nontender. No hepatosplenomegaly, normal bowel sounds, no guarding or rigidity. EXTREMITIES: No clubbing, no edema, no cyanosis, 2+ pulses and upper and lower extremities. MUSCULOSKELETAL: Muscle strength and tone normal. SPINE: No scoliosis or deformity SKIN: No rashes CENTRAL NERVOUS SYSTEM: Alert and oriented -3. No focal deficits, tone is normal in all 4 extremities. PSYCHIATRIC: Alert and oriented -3. Appropriate affect. Intact judgment and insight. - Labs CBC & Chem 7: 02/25/21 07:43 02/25/21 07:43 Labs: Abnormal Lab Results - Last 24 Hours (Table) 02/25/21 02/25/21 02/25/21 Range/Units 09:00 11:41 17:04 POC Glucose (mg/dL) 194 H 136 H (75-99) mg/dL Hep Bs Antibody Reactive A (Non-Reactive) 02/25/21 02/26/21 Range/Units 19:56 06:26 POC Glucose (mg/dL) 187 H 178 H (75-99) mg/dL Hep Bs Antibody (Non-Reactive) Assessment and Plan Plan: Assessment: #1. Acute exacerbation of COPD, possibly triggered by prolonged tracheobronchitis #2. History of ongoing tobacco use and nicotine addiction, patient smokes 2 packs a day for over 50 years #3. History of hyperlipidemia #4. Chronic hypoxic respiratory failure related to COPD, she usually wears 2 L of oxygen at home #5. History of CHF, with diastolic dysfunction #6. Anxiety #7. History of breast cancer status post right mastectomy #8. Paroxysmal A. fib Plan: Patient is improving Increase activity as tolerated No Acute events overnight Vital signs are stable Could be considered for discharge home today if cleared by medicine Outpatient follow-up with Dr. Fabian in the office I performed a history & physical examination of the patient and discussed their management with my nurse practitioner, Cinda Mcneil. I reviewed the nurse practitioner's note and agree with the documented findings and plan of care. Lung sounds are positive for diminished breath sounds The findings and the impression was discussed with the patient. I attest to the documentation by the nurse practitioner. Time with Patient: Less than 30
[2021-02-26 12:08] LABS: Glucose,Whole Blood 120 mg/dL (75-99)
--- NOTE | 2021-02-26 13:30 | P.PN ---
Subjective This is a pleasant 76 years old female with past medical history of heart failure, COPD, history of breast cancer and psoriasis, hyperlipidemia, gout, anxiety, atrial fibrillation. Patient presents to [facility] complaining of from dyspnea on and off but worse over the last 1-2 days associated with cough and light green phlegm and no chest pain. No GI or urinary complaints. No fever She was transferred from [facility] after this diagnosed with COPD exacerbation for pulmonary service evaluation. She smokes about 1.5 pack per day, or illicit drugs Vitals are stable and she is saturating 95% and a 3 L oxygen. Labs including CBC, BMP, liver enzymes are unremarkable. On reviewing the records from [facility] Looks like she was saturating mid-to high 90s on 6 L oxygen via nasal cannula Chest x-ray: Mild peripheral opacities in the bilateral bases are seen. This could represent scarring or atelectasis. per Radiologist WC 4.8, hemoglobin 13.5, platelet 223 k. BMP and liver enzymes are unremarkable. Troponin is negative less than 0.01. Coated test is negative EKG report showing sinus rhythm there are no ST elevation per ED notes from [place]. ProBNP is normal Medication: She was given Levaquin, times one, so Medrol 125 mg 1 and albuterol. 02/26/2021 Patient breathing gradually improving She is saturating 97% and 2 L oxygen via nasal cannula Sugar is controlled She is currently on Solu-Medrol Possible discharge in 24-48 hours Objective - Vital Signs Vital signs: Vital Signs Temp 97.5 F L 02/26/21 12:30 Pulse 68 02/26/21 12:30 Resp 18 02/26/21 12:30 BP 132/71 02/26/21 12:30 Pulse Ox 97 02/26/21 12:30 Intake & Output 02/25/21 02/26/21 02/26/21 18:59 06:59 18:59 Intake Total 720 120 240 Output Total 300 Balance 720 120 -60 Weight 62.5 kg Intake: Oral 720 120 240 Output: Urine 300 Other: Voiding Method Toilet Toilet Toilet Diaper Diaper Diaper # Voids 1 0 0 # Bowel Movements 0 - Exam GENERAL: The patient is alert and oriented x3, not in any acute distress. Well developed, well nourished. HEENT: Pupils are round and equally reacting to light. EOMI. No scleral icterus. No conjunctival pallor. Normocephalic, atraumatic. No pharyngeal erythema. No thyromegaly. CARDIOVASCULAR: S1 and S2 present. No murmurs, rubs, or gallops. PULMONARY: Chest is clear to auscultation, no wheezing or crackles. ABDOMEN: Soft, nontender, nondistended, normoactive bowel sounds. No palpable organomegaly. MUSCULOSKELETAL: No joint swelling or deformity. EXTREMITIES: No cyanosis, clubbing, or pedal edema. NEUROLOGICAL: Gross neurological examination did not reveal any focal deficits. SKIN: No rashes. no petechiae. - Labs CBC & Chem 7: 02/25/21 07:43 02/25/21 07:43 Labs: Abnormal Lab Results - Last 24 Hours (Table) 02/25/21 02/25/21 02/25/21 Range/Units 09:00 17:04 19:56 POC Glucose (mg/dL) 136 H 187 H (75-99) mg/dL Hep Bs Antibody Reactive A (Non-Reactive) 02/26/21 02/26/21 Range/Units 06:26 12:01 POC Glucose (mg/dL) 178 H 120 H (75-99) mg/dL Hep Bs Antibody (Non-Reactive) Assessment and Plan Assessment: Acute COPD exacerbation Chronic heart failure Hypertension Hyperlipidemia History of gout Nicotine dependence History of atrial fibrillation History of breast cancer History of psoriasis Plan: This is a pleasant 70 years old female who presents with COPD exacerbation. With steroids, bronchodilators. Pulmonary consult Labs and medication were reviewed.. Continue same treatment. Continue with symptomatic treatment. Resume home medication. Monitor lytes and vitals. DVT and GI prophylaxis. Further recommendations depends on the clinical course of the patient DVT prophylaxis: Subcutaneous heparin GI Prophylaxis: Pepcid PT/OT: Pending Prognosis is guarded
[2021-02-26 16:50] LABS: Glucose,Whole Blood 143 mg/dL (75-99)
[2021-02-26 20:43] LABS: Glucose,Whole Blood 164 mg/dL (75-99)
[2021-02-26] MEDS: ATORVASTATIN 80 MG TAB PO SCH (22:04)
[2021-02-27 00:06] VITALS: TEMP 98
[2021-02-27 06:19] LABS: Glucose,Whole Blood 129 mg/dL (75-99)
[2021-02-27] MEDS: INSULIN ASPART (NovoLOG) 100 UNIT/ML VIAL SQ SCH (06:32)
[2021-02-27] MEDS: SYMBICORT 160-4.5 MCG INHALER INHALATION SCH (08:06)
[2021-02-27] MEDS ORDERED: FAMOTIDINE 20 MG TAB PO SCH (09:00)
[2021-02-27] MEDS: hydrOXYzine pamoate 25 MG CAP PO SCH (09:29)
[2021-02-27] MEDS: allopurinoL 100 MG TAB PO SCH (09:30)
[2021-02-27] MEDS: ASPIRIN 81 MG PO SCH (09:30)
[2021-02-27] MEDS: FUROSEMIDE 20 MG TAB PO SCH (09:30)
[2021-02-27] MEDS: CLOPIDOGREL 75 MG TAB PO SCH (09:31)
[2021-02-27] MEDS: methylPREDNISolone SOD SUCCI 40 MG/ML 1 ML VIAL IV SCH (09:31)
[2021-02-27] MEDS: HEPARIN SODIUM,PORCINE/PF 5,000 UNIT/0.5 ML SYRINGE SQ SCH (09:31)
[2021-02-27] MEDS: CLOBETASOL PROP 0.05% CR 15GM TOPICAL SCH (09:31)
[2021-02-27 09:37] VITALS: BP 132/99; PULSE 75; RESP 16
--- NOTE | 2021-02-27 11:19 | P.PN ---
Subjective Progress Note Date: 02/27/21 Principal diagnosis: Acute exacerbation of chronic obstructive pulmonary disease This is a 70-year-old female with history of COPD, and hyperlipidemia, who presents to the emergency room and [place], with increasing shortness of breath. The patient is a very poor historian. She continues to smoke. She apparently has seen a lung doctor in the past. I believe she sees a nurse practitioner up in that area by the name of Aaron Leo. The patient admits to cough, chest congestion, shortness of breath, wheezing, and chest tightness. Again, she is not a particularly good historian. The only medications she was on as an outpatient was Crestor, Claritin, aspirin, clobetasol foam, Symbicort, and Kenalog cream. White count 5.3, hemoglobin 14.7, hematocrit 43.1, and platelet count 266,000. Sodium, potassium, chloride, CO2, anion gap, BUN, and creatinine are all normal. There is no chest x-ray from this institution. One will be ordered. Currently, the patient's on Symbicort, updrafts with albuterol sulfate and ipratropium bromide, and Solu-Medrol. On 02/26/2021 patient seen in follow-up on selective care unit, she is awake and alert, oriented 3, in no acute distress, breathing comfortably, she states she is proven clinically, less short of breath, less dyspneic, she was able to ambulate to the bathroom, she took a shower yesterday, tolerated activity well. Less bronchospastic on today's exam, she is on 3 L of oxygen pulse ox is 96%, she is afebrile, hemodynamically she stable. She remains on breathing treatments, IV steroids with Solu-Medrol 40 mg every 8 hours, Symbicort, and nebulized bronchodilators. Chest x-ray from yesterday showed pleural diaphragmatic scarring at the lung bases stable in appearance. The patient is seen today 02/27/2021 in follow-up on the selective care unit. She is awake and alert in no acute distress. Up ambulating in the hallways. No worsening shortness of breath, cough or congestion. Maintaining O2 saturations in the 90s on room air. Blood glucose 129. She remains on DuoNeb inhalations, Symbicort, steroids. Objective - Vital Signs Vital signs: Vital Signs Temp 98.0 F 02/26/21 20:00 Pulse 75 02/27/21 08:00 Resp 16 02/27/21 08:00 BP 132/99 02/27/21 08:00 Pulse Ox 97 02/27/21 08:00 Intake & Output 02/26/21 02/27/21 02/27/21 18:59 06:59 18:59 Intake Total 720 240 Output Total 300 Balance 420 240 Weight 62 kg Intake: Oral 720 240 Output: Urine 300 Other: Voiding Method Toilet Toilet Toilet Diaper Diaper Diaper # Voids 2 2 # Bowel Movements 0 - Exam GENERAL EXAM: Alert, active, pleasant 70-year-old female, on room air, comfortable in no apparent distress. HEAD: Normocephalic. EYES: Normal reaction of pupils, equal size. NOSE: Clear with pink turbinates. THROAT: No erythema or exudates. NECK: No masses, no JVD. CHEST: No chest wall deformity. LUNGS: Equal air entry with no crackles, wheeze, rhonchi or dullness. CVS: S1 and S2 normal with no audible murmur, regular rhythm. ABDOMEN: No hepatosplenomegaly, normal bowel sounds, no guarding or rigidity. SPINE: No scoliosis or deformity SKIN: No rashes CENTRAL NERVOUS SYSTEM: No focal deficits, tone is normal in all 4 extremities. EXTREMITIES: There is no peripheral edema. No clubbing, no cyanosis. Peripheral pulses are intact. - Labs CBC & Chem 7: 02/25/21 07:43 02/25/21 07:43 Labs: Abnormal Lab Results - Last 24 Hours (Table) 02/26/21 02/26/21 02/26/21 Range/Units 12:01 16:49 20:42 POC Glucose (mg/dL) 120 H 143 H 164 H (75-99) mg/dL 02/27/21 Range/Units 06:18 POC Glucose (mg/dL) 129 H (75-99) mg/dL Assessment and Plan Assessment: 1 Acute exacerbation of COPD, possibly triggered by prolonged tracheobronchitis 2 History of ongoing tobacco use and nicotine addiction, patient smokes 2 packs a day for over 50 years 3 History of hyperlipidemia 4 Chronic hypoxic respiratory failure related to COPD, she usually wears 2 L of oxygen at home 5 History of CHF, with diastolic dysfunction 6 Anxiety 7 History of breast cancer status post right mastectomy 8 Paroxysmal A. fib Plan: The patient was seen and evaluated by Dr. Alvarez She is cleared for discharge from the pulmonary standpoint Again educated regarding the importance of complete smoking cessation Follow-up in our office with Dr. Emily Baldwin, the cosigning physician, performed a history & physical examination of the patient. Lungs sounds are clear, diminished. Maintaining good O2 saturations in the 90s on room air. I discussed the assessment and plan of care with my nurse practitioner, Pamela Morales. I attest to the above note as dictated by her.
--- NOTE | 2021-02-27 15:35 | P.DS ---
Providers Date of admission: 02/25/21 01:07 Attending physician: Ayo Jackson MD Consults: 02/25/21 02:41 Consult Physician Routine Consulting Provider: Aaron Alvarez Reason/Comments: COPD Do you want consulting provider notified?: Yes Primary care physician: [facility] Course: Diagnoses: Acute COPD exacerbation Chronic heart failure Hypertension Hyperlipidemia History of gout Nicotine dependence History of atrial fibrillation History of breast cancer History of psoriasis Hospital course: This is a pleasant 76 years old female with past medical history of heart failure, COPD, history of breast cancer and psoriasis, hyperlipidemia, gout, anxiety, atrial fibrillation. Patient presents to [facility] complaining of from dyspnea on and off but worse over the last 1-2 days associated with cough and light green phlegm and no chest pain. No GI or urinary complaints. No fever She was transferred from [facility] after this diagnosed with COPD exacerbation for pulmonary service evaluation. She smokes about 1.5 pack per day, or illicit drugs Vitals are stable and she is saturating 95% and a 3 L oxygen. Labs including CBC, BMP, liver enzymes are unremarkable. On reviewing the records from [facility] Looks like she was saturating mid-to high 90s on 6 L oxygen via nasal cannula Chest x-ray: Mild peripheral opacities in the bilateral bases are seen. This could represent scarring or atelectasis. per Radiologist WC 4.8, hemoglobin 13.5, platelet 223 k. BMP and liver enzymes are unremarkable. Troponin is negative less than 0.01. Coated test is negative EKG report showing sinus rhythm there are no ST elevation per ED notes from [place]. ProBNP is normal Medication: She was given Levaquin, times one, so Medrol 125 mg 1 and a lbuterol. Patient was continued on Solu-Medrol, and interval improvement and today she was walking the hallway even without oxygen, she was walking briskly. No dyspnea. No other complaints. She Was willing and agreeable to go home today Patient was cleared for discharge by desk officer Patient says that she has her home oxygen already. Patient will be discharged on tapered dose of prednisone Problems and management plan were discussed with the patient and he verbalized understanding and acceptance Patient was found stable and can be discharged home however he needs follow-up as an outpatient. Patient was instructed to follow up with PCP within one week and patient agrees to go to see him in 1-2 days Patient was instructed to follow up with Dr. Fabian desk officer in 1 week and she agrees with the appointments made for her on 03/06 Physical exam Gen: patient is a AAOx3, no distress CVS: S1-S2, RRR, no murmur Lungs: B/L CTA, no wheezing Abdomen: soft, no distention, no tenderness, positive bowel sounds Extremity: no leg edema or induration Time spent more than 35 minutes Plan - Discharge Summary Discharge Rx Participant: Yes New Discharge Prescriptions: New Famotidine [Pepcid] 20 mg PO DAILY #60 tab predniSONE 10 mg PO DIRECTED #30 tab allopurinoL [Zyloprim] 100 mg PO DAILY tab Continue Loratadine [Claritin] 10 mg PO DAILY Rosuvastatin Calcium [Crestor] 40 mg PO HS Aspirin 81 mg PO DAILY #30 chew Triamcinolone 0.1% Cream [Kenalog 0.1% Cream] 1 applicatio TOPICAL BID PRN PRN Reason: Rash Clobetasol Propionate/Emoll [Clobetasol Emulsion 0.05% Foam] 1 applic TOPICAL BID Budesonide-Formot 160-4.5 Mcg [Symbicort 160-4.5 Mcg Inhaler] 2 puff INHAL ATION RT-BID Discharge Medication List Loratadine [Claritin] 10 mg PO DAILY 09/19/18 [History] Rosuvastatin Calcium [Crestor] 40 mg PO HS 09/19/18 [History] Aspirin 81 mg PO DAILY #30 chew 09/22/18 [Rx] Budesonide-Formot 160-4.5 Mcg [Symbicort 160-4.5 Mcg Inhaler] 2 puff INHALATION RT-BID 02/25/21 [History] Clobetasol Propionate/Emoll [Clobetasol Emulsion 0.05% Foam] 1 applic TOPICAL BID 02/25/21 [History] Triamcinolone 0.1% Cream [Kenalog 0.1% Cream] 1 applicatio TOPICAL BID PRN 02/25/21 [History] Famotidine [Pepcid] 20 mg PO DAILY #60 tab 02/27/21 [Rx] allopurinoL [Zyloprim] 100 mg PO DAILY tab 02/27/21 [Rx] predniSONE 10 mg PO DIRECTED #30 tab 02/27/21 [Rx] Follow up Appointment(s)/Referral(s): Brandon Diaz MD [STAFF PHYSICIAN] - 03/06/21 11:00 am Aaron Leo NPC [Primary Care Provider] - 1 Week (office will call you with an appt.) Activity/Diet/Wound Care/Special Instructions: heart healthy diet activity is restricted till you see your doctor Discharge Disposition: HOME SELF-CARE
== END 2021-02-27 13:22 | disposition home or self-care (01) ==
LOC: 3SCARD 02-25 01:07 → INTOOBSV 02-25 01:07 → 3SCARD 02-26 02:24 → UNDODISIN 02-27 13:22
PROVIDERS: ADMIT Internal Medicine; ATTEND Internal Medicine
DX: J44.0 Chronic obstructive pulmonary disease with (acute) lower respiratory infection (principal); J96.11 Chronic respiratory failure with hypoxia; I50.32 Chronic diastolic (congestive) heart failure; I11.0 Hypertensive heart disease with heart failure; J44.1 Chronic obstructive pulmonary disease with (acute) exacerbation; I48.0 Paroxysmal atrial fibrillation; J20.9 Acute bronchitis, unspecified; E78.5 Hyperlipidemia, unspecified; F32.9 Major depressive disorder, single episode, unspecified; F41.9 Anxiety disorder, unspecified; L40.9 Psoriasis, unspecified; F17.210 Nicotine dependence, cigarettes, uncomplicated; Z71.6 Tobacco abuse counseling; Z79.82 Long term (current) use of aspirin; Z79.51 Long term (current) use of inhaled steroids; Z90.11 Acquired absence of right breast and nipple; Z85.3 Personal history of malignant neoplasm of breast; Z87.39 Personal history of other diseases of the musculoskeletal system and connective tissue; Z90.49 Acquired absence of other specified parts of digestive tract; Z87.19 Personal history of other diseases of the digestive system
CPT/HCPCS: 96376 ×3; 96374; 96375; 94640 ×5; 94760; 80053; 85025; 86706; 84145; 71046; G0379; G0378 ×3; J2920 ×3; J1644 ×3